=== PATIENT | female | born 1975 | race African-American/Black ===

== ENCOUNTER 2017-05-25 05:26 | Emergency (ER) | payer OTHER ==
[~2017-05-25] VITALS: Ht 167.6 cm; Wt 76.2 kg
[~2017-05-25 05:26] MED LIST: BENTYL10 MG ORAL; CALCIUM 500+D1 EACH PO; CYCLOBENZAPRINE10 MG ORAL; FLONASE1 SPRAYS NASAL; IBUPROFEN600 MG ORAL; INDOMETHACIN75 MG ORAL; LORATADINE10 M1 PO; NAPROXEN500 M2 ORAL; NKM; NORCO 5-325 TA1 EACH ORAL; ONDANSETRON ODT4 MG ORAL; TRAMADOL HCL50 MG ORAL; VALIUM5 MG ORAL; ZOFRAN ODT4 MG ORAL
[2017-05-25 05:45] VITALS: BP 100/64
[2017-05-25] MEDS ORDERED: TRAMADOL HCL50 MG ORAL (06:00)
[2017-05-25] MEDS ORDERED: DOXYCYCLINE MO100 MG ORAL (06:00)
--- NOTE | 2017-05-25 06:01 | Emergency Room Report ---
History of Present Illness General Chief Complaint: General Complaint Source: Patient, Medical Record Present Illness HPI This is a 42-year-old female with history of chronic pain. She presents with headache and a rash. Onset for last to 3 days. Achy. Complaint headache throbbing in nature. No focal deficit. Does have a cough. No nausea no vomiting. No fever or chills. The rash is scattered her body. It is itching. Worried about bedbugs. No other complaint. Allergies: Coded Allergies: Green Fernandez (Verified Allergy, Unknown, 09/14/15) IBUPROFEN (Verified Allergy, Unknown, 05/01/16) Jackson Fernandez (Verified Allergy, Unknown, 09/14/15) Pork (Verified Allergy, Unknown, 08/01/16) White Fernandez (Verified Allergy, Unknown, 09/14/15) Dairy (Verified Adverse Reaction, Intermediate, vomit, 02/28/13) Patient History Past Medical History: see triage record, old chart reviewed Past Surgical History: other Pertinent Family History: none Social History: Reports: smoking Last Menstrual Period: 05/18/17 Now: No : 7 Para: 2 Immunizations: other Reviewed Nursing Documentation: PMH: Agreed, PSxH: Agreed Review of Systems Eye: Denies: blurred vision, eye pain ENT: Denies: ear pain, nose congestion, throat swelling Respiratory: Denies: cough, shortness of breath Cardiovascular: Denies: chest pain, palpitations Gastrointestinal: Denies: abdominal pain, diarrhea, nausea, vomiting Musculoskeletal: Denies: back pain, joint pain Skin: Denies: rash Neurological: Reports: headache, Denies: numbness Endocrine: Denies: increased thirst, increased urine Hematologic/Lymphatic: Denies: easy bruising All Other Systems: negative except mentioned in HPI Physical Exam Vital Signs Date Time Temp Pulse Resp B/P Pulse Ox O2 Delivery O2 Flow Rate FiO2 05/25/17 05:36 97.9 74 14 100/64 97 05/25/17 05:45 Room Air vitals normal Sp02 EP Interpretation: reviewed, normal General Appearance: well appearing, no apparent distress, alert Head: normocephalic, atraumatic Eyes: bilateral eye EOMI, bilateral eye PERRL ENT: hearing grossly normal, normal pharynx Neck: full range of motion, supple, no meningismus Respiratory: chest non-tender, lungs clear, normal breath sounds Cardiovascular #1: regular rate, rhythm, no murmur Gastrointestinal: normal bowel sounds, non tender, no mass, no organomegaly, no bruit, non-distended Musculoskeletal: back normal, gait/station normal, normal range of motion Neurologic: alert, oriented x3 Psychiatric: mood/affect normal Skin: warm/dry, rash - Scattered 3-4 mm erythematous nodular Throughout her body. Medical Decision Making Diagnostic Impression: Primary Impression: Headache Qualified Codes: G44.209 - Tension-type headache, unspecified, not intractable Additional Impression: Cellulitis Qualified Codes: L03.90 - Cellulitis, unspecified ER Course Patient with headache. She looks well. No evidence of meningitis, bleed or neoplastic process. We'll discharge home. Her rash may be a viral illness versus cellulitis. We'll go ahead and treat with antibiotics. Last Vital Signs Date Time Temp Pulse Resp B/P Pulse Ox O2 Delivery O2 Flow Rate FiO2 05/25/17 05:45 97.9 74 14 100/64 97 Room Air Status: improved Disposition: HOME, SELF-CARE Condition: Stable Scripts Tramadol Hcl* (ULTRAM*) 50 Mg Tablet 50 MG ORAL Q6H Y for For Pain, #20 TAB 0 Refills Prov: ELIZ VELARDE M.D. 05/25/17 Doxycycline Monohydrate* (DOXYCYCLINE MONOHYDRATE*) 100 Mg Capsule 100 MG ORAL Q12H, #14 CAP 0 Refills Prov: ELIZ VELARDE M.D. 05/25/17 Additional Instructions: Followup with your DrJayne 7 days. Return if symptom worsen. ELIZ VELARDE M.D. May 25, 2017 06:01
[2017-05-25 06:22] VITALS: BP 104/69
== END 2017-05-25 06:22 | disposition home or self-care (01) ==
LOC: EMR 05:50
DX: R51 Headache (principal); L03.818 Cellulitis of other sites; Z88.6 Allergy status to analgesic agent; Z91.018 Allergy to other foods
CPT/HCPCS: 99284

== ENCOUNTER 2017-05-29 01:56 | Emergency (ER) | payer MEDICAID, OTHER ==
[~2017-05-29] VITALS: Ht 167.6 cm; Wt 73.0 kg
[~2017-05-29 01:56] MED LIST changes: +DOXYCYCLINE MO100 MG ORAL
[2017-05-29] MEDS ORDERED: Acetaminophen 500mg (ES) tab PO ONE (02:45)
[2017-05-29] MEDS ORDERED: CYCLOBENZAPRINE10 MG ORAL (02:58)
[2017-05-29] MEDS ORDERED: ACETAMINOPHEN-1 EAC1 ORAL (02:58)
[2017-05-29 03:44] VITALS: BP 132/82
[2017-05-29] MEDS ORDERED: Morphine Sulfate 4mg/ml Inj IM ONE (03:45)
--- NOTE | 2017-05-29 03:58 | Emergency Room Report ---
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 States she felt her shoulder got pulled out. Notes pain to her left shoulder and left side of neck. Pain is a 10 out of 10, sharp, radiating up the neck. States it is painful to lift her shoulder. Denies any other injuries. No other of any relieving factors. Denies any other associated symptoms. Allergies: Coded Allergies: Green Fernandez (Verified Allergy, Unknown, 09/14/15) IBUPROFEN (Verified Allergy, Unknown, 05/01/16) Jackson Fernandez (Verified Allergy, Unknown, 09/14/15) Pork (Verified Allergy, Unknown, 08/01/16) White Fernandez (Verified Allergy, Unknown, 09/14/15) Dairy (Verified Adverse Reaction, Intermediate, vomit, 02/28/13) Patient History Past Medical History: none Past Surgical History: none Pertinent Family History: none Social History: Denies: alcohol use, drug use, smoking Now: No Immunizations: UTD Reviewed Nursing Documentation: PMH: Agreed, PSxH: Agreed Nursing Documentation-PMH Past Medical History: No Stated History Review of Systems All Other Systems: negative except mentioned in HPI Physical Exam Vital Signs Date Time Temp Pulse Resp B/P Pulse Ox O2 Delivery O2 Flow Rate FiO2 05/29/17 02:12 98.2 75 18 132/82 97 Room Air Sp02 EP Interpretation: reviewed, normal General Appearance: no apparent distress, alert, GCS 15, non-toxic Head: normocephalic Eyes: bilateral eye PERRL, bilateral eye normal inspection ENT: normal ENT inspection Neck: full range of motion, supple/symm/no masses, tender lateral Respiratory: normal inspection Cardiovascular #1: normal inspection Gastrointestinal: normal inspection Rectal: deferred Genitourinary: no CVA tenderness Musculoskeletal: back normal, gait/station normal, normal range of motion - full passive ROM, non-tender, tender - L shoulder Neurologic: alert, oriented x3, responsive, motor strength/tone normal, sensory intact, speech normal Psychiatric: judgement/insight normal, memory normal, mood/affect normal, no suicidal/homicidal ideation Skin: normal inspection Lymphatic: normal inspection Procedures Splinting Splinting : Consent: Verbal Pre-Made Type: sling Pre-Proc Neuro Vasc Exam: normal Post-Proc Neuro Vasc Exam: normal Patient Tolerated: Well Complications: None Medical Decision Making Diagnostic Impression: Primary Impression: Neck strain Qualified Codes: S16.1XXA - Strain of muscle, fascia and tendon at neck level , initial encounter Additional Impression: Shoulder strain Qualified Codes: S46.912A - Strain of unspecified muscle, fascia and tendon at shoulder and upper arm level, left arm, initial encounter ER Course Hospital Course 42-year-old F presents to ED complaining of L shoulder pain Differential diagnoses include: Fracture, dislocation, sprain, contusion Clinical course Patient placed on stretcher. After initial history and physical, I ordered pain medications and Xrays of L shoulder Xrays prelim read shows no acute fracture/dislocation. Placed in shoulder sling Patient is requesting [place] for pain which I do not believe is appropriate. Diagnosis - neck strain, shoulder strain Stable and discharged to home with prescription for Tylenol #3, Flexeril. apply heat. weight bear as tolerated. Followup with PMD. Return to ED if symptoms recur or worsen Other X-Ray Diagnostic Results Other X-Ray Diagnostic Results : X-Ray ordered: L shoulder # of Views/Limited Vs Complete: 3 View Indication: Pain EP Interpretation: Yes Interpretation: no dislocation, no soft tissue swelling, no fractures Impression: No acute disease Interpreting ER Provider: Electronically signed by Pato Sidhu MD Last Vital Signs Date Time Temp Pulse Resp B/P Pulse Ox O2 Delivery O2 Flow Rate FiO2 05/29/17 03:47 98.2 05/29/17 03:44 18 132/82 97 Room Air 05/29/17 02:12 75 Status: improved Disposition: HOME, SELF-CARE Condition: Stable Scripts Cyclobenzaprine Hcl* (FLEXERIL*) 10 Mg Tablet 10 MG ORAL TID Y for Muscle Spasm, #20 TAB Prov: PATO SIDHU M.D. 05/29/17 Acetaminophen With Codeine (T#3) (TYLENOL #3 TAB*) Y Tab 1 TAB ORAL Q8H Y for For Pain, #20 TAB Prov: PATO SIDHU M.D. 05/29/17 Patient Instructions: Shoulder Sprain PATO SIDHU M.D. May 29, 2017 03:58
--- NOTE | 2017-05-29 11:30 | Diagnostic Imaging Report ---
Indication: Pain Findings: 3 views of the left shoulder were obtained. Alignment of the left shoulder is normal. No acute fracture is identified. Soft tissues are unremarkable. Impression: Negative left shoulder examination
== END 2017-05-29 03:48 | disposition home or self-care (01) ==
LOC: EMR 02:29
DX: S16.1XXA Strain of muscle, fascia and tendon at neck level, initial encounter (principal); S46.912A Strain of unspecified muscle, fascia and tendon at shoulder and upper arm level, left arm, initial encounter; Z91.018 Allergy to other foods; Z88.6 Allergy status to analgesic agent; Z91.011 Allergy to milk products; X58.XXXA Exposure to other specified factors, initial encounter; Y92.9 Unspecified place or not applicable
CPT/HCPCS: 29240; 73030; 96372; 99284; J2270

== ENCOUNTER 2017-09-16 21:02 | Emergency (ER) | payer MEDICAID, OTHER ==
[~2017-09-16] VITALS: Ht 167.6 cm; Wt 72.6 kg
[~2017-09-16 21:02] MED LIST changes: +ACETAMINOPHEN-1 EAC1 ORAL
[2017-09-16] MEDS ORDERED: NKM (21:15)
[2017-09-16 21:25] VITALS: BP 129/76
[2017-09-16] MEDS ORDERED: Dicyclomine HCl 10mg/5ml oral soln ORAL ONE (21:30)
[2017-09-16] MEDS ORDERED: Lidocaine 2% Visc 15ml soln ORAL ONE (21:30)
[2017-09-16] MEDS ORDERED: Mylanta II UD 30ml ORAL ONE (21:30)
[2017-09-16] MEDS ORDERED: PEPCID40 MG PO (21:41)
--- NOTE | 2017-09-16 21:41 | Emergency Room Report ---
History of Present Illness General Chief Complaint: Abdominal Pain Source: Patient Present Illness HPI 42-year-old female history of H. pylori many years ago presenting with epigastric and mid abdomen burning for 3 days. Patient states that the burning comes and goes. Denies any fever chills nausea vomiting or diarrhea. Patient states that smoking makes the pain better. Denies any heavy Motrin use. Denies ever having an endoscopy. Denies fever chills dysuria or abnormal vaginal bleeding Allergies: Coded Allergies: Green Fernandez (Verified Allergy, Unknown, 09/14/15) IBUPROFEN (Verified Allergy, Unknown, 05/01/16) Jackson Fernandez (Verified Allergy, Unknown, 09/14/15) Pork (Verified Allergy, Unknown, 08/01/16) White Fernandez (Verified Allergy, Unknown, 09/14/15) Dairy (Verified Adverse Reaction, Intermediate, vomit, 02/28/13) Patient History Past Medical History: see triage record Past Surgical History: none Pertinent Family History: none Last Menstrual Period: last week Reviewed Nursing Documentation: PMH: Agreed, PSxH: Agreed Nursing Documentation-PMH Past Medical History: No History, Except For Review of Systems All Other Systems: negative except mentioned in HPI Physical Exam Vital Signs Date Time Temp Pulse Resp B/P (MAP) Pulse Ox O2 Delivery O2 Flow Rate FiO2 09/16/17 21:10 98.2 79 16 129/76 99 Room Air Sp02 EP Interpretation: reviewed, normal General Appearance: normal inspection, well appearing, no apparent distress, alert, GCS 15, non-toxic Head: normocephalic, atraumatic Eyes: bilateral eye normal inspection, bilateral eye PERRL, bilateral eye EOMI ENT: normal ENT inspection, normal pharynx, normal voice, moist mucus membranes Neck: normal inspection, full range of motion, supple Respiratory: normal inspection, lungs clear, normal breath sounds, no respiratory distress, no retraction, no wheezing, speaking full sentences, chest symmetrical Cardiovascular #1: normal inspection, regular rate, rhythm, no edema, normal capillary refill Cardiovascular #2: 2+ radial (R), 2+ radial (L) Gastrointestinal: soft, non-distended, no guarding, other - Mild epigastric tenderness no guarding no rigidity, nontender all other parts of the abdomen, Antonio sign is negative Musculoskeletal: normal inspection, back normal, normal range of motion, non- tender Neurologic: normal inspection, alert, oriented x3, responsive, motor strength/ tone normal, sensory intact, normal gait, speech normal Psychiatric: normal inspection, judgement/insight normal, memory normal Skin: normal inspection, normal color, no rash, warm/dry, well hydrated, normal turgor Medical Decision Making Diagnostic Impression: Primary Impression: Gastritis Additional Impression: Abdominal pain ER Course 42-year-old female with epigastric abdominal pain Differential Diagnosis: Gastritis, gastroenteritis, UTI/pyelo At this time abdomen is soft nontender all quadrants with the exception of epigastric region, not likely to have acute intra-abdominal surgical pathology, will hold CT for now. Plan: Basic labs, ua, ekg Pepcid, maalox, pain control, IVF ER course: Patient has remained stable during ED stay. Pain improved. Repeat abdominal exam is nontender. Tolerating PO Disposition: Patient is to be discharged to home. Prescriptions given are Pepcid Patient is instructed to follow up with their primary care doctor within 5 days. Strict return precautions discussed with patient such as fever, chills, worsening/severe abdominal pain, nausea, vomiting, black or bloody stools, which may indicate severe illness. Patient verbalizes understanding and agrees with plan. Please note that this Emergency Department Report was dictated using [employer]umble[employer] care nursing assistant technology software, occasionally this can lead to erroneous entry secondary to interpretation by the dictation equipment Laboratory Tests Test 09/16/17 11:34 09/16/17 21:23 09/16/17 21:30 Human Chorionic Gonadotropin, Quant 1 mIU/mL (1-6) Urine Color Pale yellow Urine Appearance Clear Urine pH 7 (4.5-8.0) Urine Specific [place] 1.010 (1.005-1.035) Urine Protein Negative (NEGATIVE) Urine Glucose (UA) Negative (NEGATIVE) Urine Ketones Negative (NEGATIVE) Urine Occult Blood Negative (NEGATIVE) Urine Nitrite Negative (NEGATIVE) Urine Bilirubin Negative (NEGATIVE) Urine Urobilinogen Normal MG/DL (0.0-1.0) Urine Leukocyte Esterase Negative (NEGATIVE) Urine RBC 0-2 /HPF (0 - 2) Urine WBC 0-2 /HPF (0 - 2) Urine Squamous Epithelial Cells Few /LPF (NONE/OCC) Urine Bacteria Few /HPF (NONE) Urine HCG, Qualitative Negative White Blood Count 9.6 K/UL (4.8-10.8) Red Blood Count 4.13 M/UL (4.20-5.40) L Hemoglobin 13.2 G/DL (12.0-16.0) Hematocrit 40.3 % (37.0-47.0) Mean Corpuscular Volume 98 FL (80-99) Mean Corpuscular Hemoglobin 31.8 PG (27.0-31.0) H Mean Corpuscular Hemoglobin Concent 32.6 G/DL (32.0-36.0) Red Cell Distribution Width 11.5 % (11.6-14.8) L Platelet Count 276 K/UL (150-450) Mean Platelet Volume 6.0 FL (6.5-10.1) L Neutrophils (%) (Auto) 54.6 % (45.0-75.0) Lymphocytes (%) (Auto) 33.9 % (20.0-45.0) Monocytes (%) (Auto) 9.3 % (1.0-10.0) Eosinophils (%) (Auto) 1.0 % (0.0-3.0) Basophils (%) (Auto) 1.2 % (0.0-2.0) Sodium Level 138 MMOL/L (136-145) Potassium Level 3.9 MMOL/L (3.5-5.1) Chloride Level 103 MMOL/L (98-107) Carbon Dioxide Level 30 MMOL/L (21-32) Anion Gap 5 mmol/L (5-15) Blood Urea Nitrogen 13 mg/dL (7-18) Creatinine 0.9 MG/DL (0.55-1.30) Estimate Glomerular Filtration Rate > 60 mL/min (>60) Glucose Level 103 MG/DL (74-106) Calcium Level 8.9 MG/DL (8.5-10.1) Total Bilirubin 0.3 MG/DL (0.2-1.0) Aspartate Amino Transferase (AST) 14 U/L (15-37) L Alanine Aminotransferase (ALT) 18 U/L (12-78) Alkaline Phosphatase 90 U/L (46-116) Total Protein 6.8 G/DL (6.4-8.2) Albumin 3.8 G/DL (3.4-5.0) Globulin 3.0 g/dL Albumin/Globulin Ratio 1.3 (1.0-2.7) Lipase 133 U/L (73-393) Last Vital Signs Date Time Temp Pulse Resp B/P (MAP) Pulse Ox O2 Delivery O2 Flow Rate FiO2 09/16/17 21:25 98.2 72 16 129/76 99 Room Air Disposition: HOME, SELF-CARE Condition: Improved Scripts Famotidine (PEPCID) 40 Mg Tablet 40 MG PO DAILY for 14 Days, #14 TAB 0 Refills Prov: Estrellita Perez M.D. 09/16/17 Patient Instructions: Abdominal Pain, Adult, Gastritis, Adult Estrellita Perez M.D. Sep 16, 2017 21:41
[2017-09-16 21:47] LABS: APPEARANCE,URINE CLEAR; BILIRUBIN, URINE NEGATIVE (NEGATIVE); COLOR,URINE PALE YELLOW; GLUCOSE, URINE (UA) NEGATIVE (NEGATIVE); KETONES,URINE NEGATIVE (NEGATIVE); LEUKOCYTE ESTERASE ,URINE NEGATIVE (NEGATIVE); NITRITE,URINE NEGATIVE (NEGATIVE); PH,URINE 7 (4.5-8.0); PROTEIN,URINE NEGATIVE (NEGATIVE); UROBILINOGEN,URINE NORMAL MG/DL (0.0-1.0)
[2017-09-16 22:22] LABS: BASOPHILS % (AUTO) 1.2 % (0.0-2.0); HEMATOCRIT 40.3 % (37.0-47.0); HEMOGLOBIN 13.2 G/DL (12.0-16.0); LYMPHOCYTES % (AUTO) 33.9 % (20.0-45.0); MEAN CORPUSCULAR VOLUME 98 FL (80-99); MONOCYTES % (AUTO) 9.3 % (1.0-10.0); NEUTROPHILS % (AUTO) 54.6 % (45.0-75.0); PLATELET COUNT 276 K/UL (150-450); RED BLOOD COUNT 4.13 M/UL (4.20-5.40); RED CELL DISTRIBUTION WIDTH 11.5 % (11.6-14.8); WHITE BLOOD COUNT 9.6 K/UL (4.8-10.8)
[2017-09-16 22:49] LABS: ALANINE AMINOTRANSFERASE 18 U/L (12-78); ALBUMIN 3.8 G/DL (3.4-5.0); ALBUMIN/GLOBULIN RATIO 1.3 (1.0-2.7); ALKALINE PHOSPHATASE 90 U/L (46-116); ANION GAP 5 mmol/L (5-15); ASPARTATE AMINO TRANSFERASE 14 U/L (15-37); BILIRUBIN,TOTAL 0.3 MG/DL (0.2-1.0); BLOOD UREA NITROGEN 13 mg/dL (7-18); CALCIUM 8.9 MG/DL (8.5-10.1); CARBON DIOXIDE 30 MMOL/L (21-32); CHLORIDE 103 MMOL/L (98-107); CREATININE 0.9 MG/DL (0.55-1.30); POTASSIUM 3.9 MMOL/L (3.5-5.1); SODIUM 138 MMOL/L (136-145)
[2017-09-16 23:12] VITALS: BP 134/82
== END 2017-09-17 00:11 | disposition home or self-care (01) ==
LOC: EMR 22:16
DX: K29.70 Gastritis, unspecified, without bleeding (principal); Z88.6 Allergy status to analgesic agent; Z91.011 Allergy to milk products; Z91.018 Allergy to other foods
CPT/HCPCS: 36415; 80053; 81001; 81025; 83690; 84702; 85025; 96361; 96374; 96375; 99284; J2405; S0028

== ENCOUNTER 2017-09-19 20:57 | Emergency (ER) | payer OTHER ==
[~2017-09-19] VITALS: Ht 170.2 cm; Wt 72.6 kg
[~2017-09-19 20:57] MED LIST changes: +PEPCID40 MG PO
[2017-09-19] MEDS ORDERED: Mylanta II UD 30ml ORAL ONE (21:15)
[2017-09-19] MEDS ORDERED: Lidocaine 2% Visc 15ml soln ORAL ONE (21:15)
--- NOTE | 2017-09-19 21:25 | Emergency Room Report ---
History of Present Illness General Chief Complaint: Abdominal Pain Source: Patient Present Illness HPI [id number] returns walk-in for continued epigastric pain Non-radiating, 04/22. No assoc nausea/vomiting/diarrhea/fever/chills Distant history of Hpylori that was treated and "Resolved" per patient Was seen here 3 days ago for same Review of EMR shows normal blood and urine labwork Patient has been taking prescribed famotidine Has not followup with PMD Allergies: Coded Allergies: Green Fernandez (Verified Allergy, Unknown, 09/14/15) IBUPROFEN (Verified Allergy, Unknown, 05/01/16) Jackson Fernandez (Verified Allergy, Unknown, 09/14/15) Pork (Verified Allergy, Unknown, 08/01/16) White Fernandez (Verified Allergy, Unknown, 09/14/15) Dairy (Verified Adverse Reaction, Intermediate, vomit, 02/28/13) Patient History Past Medical History: none Past Surgical History: none Pertinent Family History: none Social History: Denies: smoking, alcohol use, drug use Last Menstrual Period: 12 days ago Now: No Immunizations: UTD Reviewed Nursing Documentation: PMH: Agreed, PSxH: Agreed Review of Systems All Other Systems: negative except mentioned in HPI Physical Exam Vital Signs Date Time Temp Pulse Resp B/P (MAP) Pulse Ox O2 Delivery O2 Flow Rate FiO2 09/19/17 21:01 97.9 81 18 125/74 98 Sp02 EP Interpretation: reviewed, normal General Appearance: normal inspection, well appearing, no apparent distress, alert, GCS 15, non-toxic Head: normocephalic, atraumatic Eyes: bilateral eye PERRL, bilateral eye EOMI ENT: normal ENT inspection, hearing grossly normal, normal voice Neck: normal inspection, full range of motion, supple, no bony tend Respiratory: normal inspection, lungs clear, normal breath sounds, no respiratory distress, no retraction, no wheezing Cardiovascular #1: regular rate, rhythm, no edema Gastrointestinal: normal inspection, normal bowel sounds, non tender, soft, no mass, no guarding, no hernia, other - Minimal epigastric ttp. Non peritoneal Genitourinary: no CVA tenderness Musculoskeletal: normal inspection, back normal, normal range of motion, Adis' s Sign negative Neurologic: normal inspection, alert, responsive, speech normal Psychiatric: normal inspection, judgement/insight normal, mood/affect normal Skin: normal inspection, normal color, no rash Medical Decision Making Diagnostic Impression: Primary Impression: Gastritis Qualified Codes: K29.50 - Unspecified chronic gastritis without bleeding ER Course Continued epigastric pain VSS. Afebrile Gave viscous lido/Maalox in ED with improvement Abdomen remains non-focal Previously done labwork is reassuring Likely just gastritis Rx-ed Viscous lido to take with pepcid Low suspicion for acute bacterial/surgical process requiring additional lab work , imaging, admission and/or surgical evaluation at this time given well appearing, non-focal abd on serial exam, stable vital signs, and tolerating PO. In shared decision making process with patient, understands to return to ER for worsening symptoms and to followup with PMD in reasonable amount of time, 2-3 days. Last Vital Signs Date Time Temp Pulse Resp B/P (MAP) Pulse Ox O2 Delivery O2 Flow Rate FiO2 09/19/17 21:01 97.9 81 18 125/74 98 Status: improved Disposition: HOME, SELF-CARE Condition: Improved Patient Instructions: Gastritis, Adult, [id number] Additional Instructions: - Continue taking pepcid/famotidine each morning - Take Viscous lidocaine up to 2x a day for pain - Call Dr Montalvo for GI referral for endoscopu: [phone] OLIVE PULIDO M.D. Sep 19, 2017 21:25
[2017-09-19 21:40] VITALS: BP 138/79
[2017-09-19 21:41] VITALS: BP 125/74
== END 2017-09-19 21:43 | disposition home or self-care (01) ==
LOC: EMR 21:12
DX: K29.50 Unspecified chronic gastritis without bleeding (principal); Z91.018 Allergy to other foods; Z88.6 Allergy status to analgesic agent; Z91.011 Allergy to milk products
CPT/HCPCS: 99284; J2405

== ENCOUNTER 2017-10-22 10:32 | Emergency (ER) | payer MEDICAID, OTHER ==
[~2017-10-22] VITALS: Ht 167.6 cm; Wt 70.3 kg
--- NOTE | 2017-10-22 11:00 | Emergency Room Report ---
History of Present Illness General Chief Complaint: Abdominal Pain Source: Patient Present Illness HPI Patient just complains of epigastric discomfort Burning and painful 3/10 Patient reports that the pain is not as bad as previous times but wanted to make sure she was okay Patient reports having a burrito last night Denies any vomiting she had some mild nausea Denies any diarrhea or lower abdominal pain denies any flank pain Denies any fevers or chills Allergies: Coded Allergies: Green Fernandez (Verified Allergy, Unknown, 09/14/15) IBUPROFEN (Verified Allergy, Unknown, 05/01/16) Jackson Fernandez (Verified Allergy, Unknown, 09/14/15) Pork (Verified Allergy, Unknown, 08/01/16) White Fernandez (Verified Allergy, Unknown, 09/14/15) Dairy (Verified Adverse Reaction, Intermediate, vomit, 02/28/13) Patient History Past Medical History: see triage record Pertinent Family History: none Last Menstrual Period: Four weeks ago Reviewed Nursing Documentation: PMH: Agreed, PSxH: Agreed Nursing Documentation-PMH Past Medical History: No Stated History Review of Systems All Other Systems: negative except mentioned in HPI Physical Exam Vital Signs Date Time Temp Pulse Resp B/P (MAP) Pulse Ox O2 Delivery O2 Flow Rate FiO2 10/22/17 10:38 98.2 78 16 101/65 99 Room Air Sp02 EP Interpretation: reviewed, normal General Appearance: well appearing, no apparent distress Head: normocephalic, atraumatic Eyes: bilateral eye PERRL, bilateral eye EOMI ENT: hearing grossly normal, normal pharynx, TMs + canals normal, uvula midline Neck: full range of motion, supple, no meningismus, no bony tend Respiratory: lungs clear, normal breath sounds, no rhonchi, no respiratory distress, no retraction, no accessory muscle use Cardiovascular #1: normal peripheral pulses, regular rate, rhythm, no edema, no gallop, no JVD, no murmur Gastrointestinal: normal bowel sounds, non tender, soft, no mass, no organomegaly, non-distended, no guarding, no hernia, no pulsatile mass, no rebound Genitourinary: no CVA tenderness Musculoskeletal: normal inspection Neurologic: oriented x3, responsive, grease maker head III-XII nml as tested, motor strength/ tone normal, sensory intact Psychiatric: mood/affect normal Skin: normal color, no rash, warm/dry, palpation normal Lymphatic: normal inspection, no adenopathy Medical Decision Making Diagnostic Impression: Primary Impression: Abdominal pain ER Course With the patient's history and examination, multiple differentials considered, including but not limited to , ectopic , ovarian torsion, gastritis, cholecystitis, pancreatitis, appendicitis Patient requesting urine At this time abdomen is soft and benign patient has multiple blood work from last month Given the benign abdominal exam I did not feel further blood work or imaging was required Please note that after the patient was notified regarding her negative result patient did leave prior to final disposition with paperwork Labs Test 10/22/17 10:50 Urine HCG, Qualitative Negative Last Vital Signs Date Time Temp Pulse Resp B/P (MAP) Pulse Ox O2 Delivery O2 Flow Rate FiO2 10/22/17 10:38 98.2 78 16 101/65 99 Room Air Status: improved Disposition: HOME, SELF-CARE Condition: Improved Scripts Famotidine (PEPCID) 40 Mg Tablet 40 MG PO DAILY, #7 TAB 0 Refills Prov: ANDRÉS ALCARAZ D.O. 10/22/17 Additional Instructions: Patient is provided with the discharge instructions notified to follow up with primary doctor in the next 2-3 days otherwise return to the er with any worsening symptoms. Please note that this report is being documented using [employer] technology. This can lead to erroneous entry secondary to incorrect interpretation by the dictating instrument. ANDRÉS ALCARAZ D.O. Oct 22, 2017 11:00
[2017-10-22 11:03] VITALS: BP 101/65
[2017-10-22] MEDS: Mylanta II UD 30ml ORAL ONE ×2 (11:07→11:14)
[2017-10-22] MEDS: Dicyclomine HCl 10mg/5ml oral soln ORAL ONE ×2 (11:07→11:13)
[2017-10-22] MEDS: Lidocaine 2% Visc 15ml soln ORAL ONE ×2 (11:07→11:13)
[2017-10-22] MEDS ORDERED: PEPCID40 MG PO (11:38)
[2017-10-22 11:46] VITALS: BP 101/65
== END 2017-10-22 11:47 | disposition home or self-care (01) ==
LOC: EMR 11:26
DX: R10.13 Epigastric pain (principal); Z88.6 Allergy status to analgesic agent; Z91.018 Allergy to other foods
CPT/HCPCS: 81025; 99283

== ENCOUNTER 2018-03-20 05:31 | Emergency (ER) | payer MEDICAID ==
[~2018-03-20] VITALS: Ht 170.2 cm; Wt 74.8 kg
[2018-03-20] MEDS ORDERED: Naproxen 500mg tab ORAL ONE (06:00)
[2018-03-20] MEDS ORDERED: DiphenhydrAMINE 50mg/ml Inj IVP ONE (06:00)
[2018-03-20] MEDS ORDERED: Metoclopramide 10mg/2ml Inj IVP ONE (06:00)
--- NOTE | 2018-03-20 06:00 | Emergency Room Report ---
History of Present Illness General Chief Complaint: Headache Source: Patient Present Illness HPI Patient woke up with headache today. She never gets headaches. She celebrated her birthday last Monday. She was drinking alcohol at that time and very active. She felt fine on Monday and Monday. On the way into work today she didn't feel well with a headache and has some blurred vision. It's on the right side of her head and is throbbing. She denies any vomiting or nausea. She hasn't taken any medication for it. Pain rated 6/10, throbbing, not radiating, R side of head. She denies any fevers, chills. She's concerned about whether she has diabetes. She's been on the borderline when her doctors checked in the past. She denies polyuria polydipsia. No chest pain, cough. Patient is a smoker. She also smokes THC. Denies any rash. Is no dysuria. Her periods are irregular. She's been having bleeding twice a month. She doesn't believe she is at this time. No "thunderclap", oncologic problems, blood thinners, unilateral weakness or tingling. 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 Last Menstrual Period: 03/13/18 Now: No : 8 Para: 2 Reviewed Nursing Documentation: PMH: Agreed; PSxH: Agreed Review of Systems All Other Systems: negative except mentioned in HPI Physical Exam Vital Signs Date Time Temp Pulse Resp B/P (MAP) Pulse Ox O2 Delivery O2 Flow Rate FiO2 03/20/18 05:33 97.5 74 14 117/65 96 Room Air 97.5 Sp02 EP Interpretation: reviewed, normal General Appearance: well appearing, no apparent distress, GCS 15 Head: normocephalic Eyes: bilateral eye normal inspection, bilateral eye PERRL, bilateral eye EOMI ENT: moist mucus membranes Neck: supple Respiratory: lungs clear, normal breath sounds Cardiovascular #1: regular rate, rhythm Cardiovascular #2: 2+ radial (R) Gastrointestinal: normal inspection, normal bowel sounds, non tender, no mass, non-distended Musculoskeletal: back normal, gait/station normal, normal range of motion Neurologic: alert, 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 Differential includes tension, alcohol withdrawal, vasculitis, migraine amongst others. The pattern is against migraine. She's concerned about blood sugar. The patient be evaluated with labs. CT is not indicated based on the history and physical exam. The patient will be treated with Reglan, Benadryl and Naprosyn. Labs unremarkable. Pain resolved with treatment. No medical emergency at this time. Patient stable for outpatient observation and treatment. Laboratory Tests Test 03/20/18 05:57 03/20/18 06:17 Urine Color Yellow Urine Appearance Clear Urine pH 6 (4.5-8.0) Urine Specific [place] 1.010 (1.005-1.035) Urine Protein Negative (NEGATIVE) Urine Glucose (UA) Negative (NEGATIVE) Urine Ketones Negative (NEGATIVE) Urine Occult Blood Negative (NEGATIVE) Urine Nitrite Negative (NEGATIVE) Urine Bilirubin Negative (NEGATIVE) Urine Urobilinogen Normal MG/DL (0.0-1.0) Urine Leukocyte Esterase Negative (NEGATIVE) Urine HCG, Qualitative Negative (NEGATIVE) Urine Opiates Screen Negative (NEGATIVE) Urine Barbiturates Screen Negative (NEGATIVE) Phencyclidine (PCP) Screen Negative (NEGATIVE) Urine Amphetamines Screen Negative (NEGATIVE) Urine Benzodiazepines Screen Negative (NEGATIVE) Urine Cocaine Screen Negative (NEGATIVE) Urine Marijuana (THC) Screen Positive (NEGATIVE) H White Blood Count 7.1 K/UL (4.8-10.8) Red Blood Count 4.41 M/UL (4.20-5.40) Hemoglobin 14.7 G/DL (12.0-16.0) Hematocrit 40.8 % (37.0-47.0) Mean Corpuscular Volume 93 FL (80-99) Mean Corpuscular Hemoglobin 33.4 PG (27.0-31.0) H Mean Corpuscular Hemoglobin Concent 36.0 G/DL (32.0-36.0) Red Cell Distribution Width 10.6 % (11.6-14.8) L Platelet Count 224 K/UL (150-450) Mean Platelet Volume 5.9 FL (6.5-10.1) L Neutrophils (%) (Auto) 41.6 % (45.0-75.0) L Lymphocytes (%) (Auto) 49.0 % (20.0-45.0) H Monocytes (%) (Auto) 6.7 % (1.0-10.0) Eosinophils (%) (Auto) 1.4 % (0.0-3.0) Basophils (%) (Auto) 1.3 % (0.0-2.0) Erythrocyte Sedimentation Rate Pending Prothrombin Time 10.3 SEC (9.30-11.50) Prothrombin Time INR 1.0 (0.9-1.1) PTT 31 SEC (23-33) Sodium Level 139 MMOL/L (136-145) Potassium Level 4.3 MMOL/L (3.5-5.1) Chloride Level 105 MMOL/L (98-107) Carbon Dioxide Level 25 MMOL/L (21-32) Anion Gap 9 mmol/L (5-15) Blood Urea Nitrogen 13 mg/dL (7-18) Creatinine 0.9 MG/DL (0.55-1.30) Estimate Glomerular Filtration Rate > 60 mL/min (>60) Glucose Level 109 MG/DL (74-106) H Calcium Level 8.7 MG/DL (8.5-10.1) Total Bilirubin 0.4 MG/DL (0.2-1.0) Aspartate Amino Transferase (AST) 12 U/L (15-37) L Alanine Aminotransferase (ALT) 16 U/L (12-78) Alkaline Phosphatase 61 U/L (46-116) Total Creatine Kinase 82 U/L (26-308) Total Protein 7.4 G/DL (6.4-8.2) Albumin 4.1 G/DL (3.4-5.0) Globulin 3.3 g/dL Albumin/Globulin Ratio 1.2 (1.0-2.7) Last Vital Signs Date Time Temp Pulse Resp B/P (MAP) Pulse Ox O2 Delivery O2 Flow Rate FiO2 03/20/18 07:14 97.5 71 14 122/72 98 Room Air 207.5 Status: improved Disposition: HOME, SELF-CARE Condition: Improved Scripts Naproxen* (NAPROSYN*) 250 Mg Tablet 250 MG ORAL TID PRN for For Pain, #16 TAB 0 Refills Prov: Leobardo Prince M.D. 03/20/18 Referrals: NON PHYSICIAN (PCP) Leobardo Prince M.D. March 20, 2018 06:00
[2018-03-20 06:23] LABS: COLOR,URINE YELLOW
[2018-03-20] MEDS ORDERED: Naproxen 500mg tab ONE (06:23)
[2018-03-20 06:24] LABS: APPEARANCE,URINE CLEAR; GLUCOSE, URINE (UA) NEGATIVE (NEGATIVE); KETONES,URINE NEGATIVE (NEGATIVE); PH,URINE 6 (4.5-8.0); PROTEIN,URINE NEGATIVE (NEGATIVE)
[2018-03-20 06:25] LABS: BILIRUBIN, URINE NEGATIVE (NEGATIVE); LEUKOCYTE ESTERASE ,URINE NEGATIVE (NEGATIVE); NITRITE,URINE NEGATIVE (NEGATIVE); UROBILINOGEN,URINE NORMAL MG/DL (0.0-1.0)
[2018-03-20 06:31] LABS: BASOPHILS % (AUTO) 1.3 % (0.0-2.0); EOSINOPHILS % (AUTO) 1.4 % (0.0-3.0); HEMATOCRIT 40.8 % (37.0-47.0); HEMOGLOBIN 14.7 G/DL (12.0-16.0); MEAN CORPUSCULAR VOLUME 93 FL (80-99); MONOCYTES % (AUTO) 6.7 % (1.0-10.0); NEUTROPHILS % (AUTO) 41.6 % (45.0-75.0); PLATELET COUNT 224 K/UL (150-450); RED BLOOD COUNT 4.41 M/UL (4.20-5.40); RED CELL DISTRIBUTION WIDTH 10.6 % (11.6-14.8); WHITE BLOOD COUNT 7.1 K/UL (4.8-10.8)
[2018-03-20 06:48] LABS: ANION GAP 9 mmol/L (5-15); BLOOD UREA NITROGEN 13 mg/dL (7-18); CALCIUM 8.7 MG/DL (8.5-10.1); CARBON DIOXIDE 25 MMOL/L (21-32); CHLORIDE 105 MMOL/L (98-107); CREATININE 0.9 MG/DL (0.55-1.30); POTASSIUM 4.3 MMOL/L (3.5-5.1); SODIUM 139 MMOL/L (136-145)
[2018-03-20 06:55] LABS: ALANINE AMINOTRANSFERASE 16 U/L (12-78); ALBUMIN 4.1 G/DL (3.4-5.0); ALBUMIN/GLOBULIN RATIO 1.2 (1.0-2.7); ALKALINE PHOSPHATASE 61 U/L (46-116); ASPARTATE AMINO TRANSFERASE 12 U/L (15-37); BILIRUBIN,TOTAL 0.4 MG/DL (0.2-1.0); CREATINE KINASE 82 U/L (26-308)
[2018-03-20] MEDS ORDERED: NAPROXEN250 MG ORAL (07:08)
[2018-03-20 07:09] VITALS: BP 122/72
[2018-03-20 07:14] VITALS: BP 122/72
== END 2018-03-20 07:15 | disposition home or self-care (01) ==
LOC: EMR 05:46
DX: R51 Headache (principal); Z88.6 Allergy status to analgesic agent; Z91.018 Allergy to other foods
CPT/HCPCS: 36415; 80053; 80307; 81003; 81025; 82550; 82962; 85025; 85610; 85651; 85730; 96374; 96375; 99284; J1200; J2765

== ENCOUNTER 2018-05-27 09:45 | Emergency (ER) | payer MEDICAID ==
[~2018-05-27] VITALS: Ht 170.2 cm; Wt 74.8 kg
[~2018-05-27 09:45] MED LIST changes: +NAPROXEN250 MG ORAL
[2018-05-27 09:58] VITALS: BP 112/75
[2018-05-27 10:28] LABS: APPEARANCE,URINE CLEAR; BILIRUBIN, URINE NEGATIVE (NEGATIVE); COLOR,URINE PALE YELLOW; GLUCOSE, URINE (UA) NEGATIVE (NEGATIVE); KETONES,URINE NEGATIVE (NEGATIVE); LEUKOCYTE ESTERASE ,URINE NEGATIVE (NEGATIVE); NITRITE,URINE NEGATIVE (NEGATIVE); PH,URINE 6 (4.5-8.0); PROTEIN,URINE NEGATIVE (NEGATIVE); UROBILINOGEN,URINE NORMAL MG/DL (0.0-1.0)
[2018-05-27] MEDS ORDERED: CEPHALEXIN500 MG ORAL (10:48)
[2018-05-27] MEDS ORDERED: DIPHENHYDRAMINE25 M1 ORAL (10:48)
[2018-05-27 10:53] VITALS: BP 112/75
--- NOTE | 2018-05-27 11:04 | Emergency Room Report ---
History of Present Illness General Chief Complaint: General Complaint Source: Patient Present Illness HPI 43-year-old female presents ED for evaluation. Patient is complaining of bites to her left arm and left leg that she noticed yesterday. States they're very itchy. Denies pain. Denies fevers or chills. Also complaining of sore throat and cough. Pain is dull, 5 out of 10, nonradiating. Cough is dry. No other aggravating relieving factors. Denies any other associated symptoms Allergies: Coded Allergies: Green Fernadnez (Verified Allergy, Unknown, 09/14/15) IBUPROFEN (Verified Allergy, Unknown, 05/01/16) Jackson Fernandez (Verified Allergy, Unknown, 09/14/15) Pork (Verified Allergy, Unknown, 08/01/16) White Fernandez (Verified Allergy, Unknown, 09/14/15) Dairy (Verified Adverse Reaction, Intermediate, vomit, 02/28/13) Patient History Past Medical History: none Past Surgical History: none Pertinent Family History: none Social History: Denies: smoking, alcohol use, drug use Last Menstrual Period: 05/22/18 Now: No Immunizations: UTD Reviewed Nursing Documentation: PMH: Agreed; PSxH: Agreed Nursing Documentation-PMH Past Medical History: No Stated History Review of Systems All Other Systems: negative except mentioned in HPI Physical Exam Vital Signs Date Time Temp Pulse Resp B/P (MAP) Pulse Ox O2 Delivery O2 Flow Rate FiO2 05/27/18 09:50 98.4 71 16 112/75 96 Room Air 98.4 Sp02 EP Interpretation: reviewed, normal General Appearance: no apparent distress, alert, GCS 15, non-toxic Head: normocephalic, atraumatic Eyes: bilateral eye normal inspection, bilateral eye PERRL ENT: hearing grossly normal, normal pharynx, no angioedema, normal voice Neck: full range of motion, supple/symm/no masses Respiratory: chest non-tender, lungs clear, normal breath sounds, speaking full sentences Cardiovascular #1: regular rate, rhythm, no edema Cardiovascular #2: 2+ carotid (R), 2+ carotid (L), 2+ radial (R), 2+ radial (L) , 2+ dorsalis pedis (R), 2+ dorsalis pedis (L) Gastrointestinal: normal bowel sounds, non tender, soft, non-distended, no guarding, no rebound Rectal: deferred Genitourinary: normal inspection, no CVA tenderness Musculoskeletal: back normal, gait/station normal, normal range of motion, non- tender Neurologic: alert, oriented x3, responsive, motor strength/tone normal, sensory intact, speech normal Psychiatric: judgement/insight normal, memory normal, mood/affect normal, no suicidal/homicidal ideation Reflexes: 3+ bicep (R), 3+ bicep (L), 3+ tricep (R), 3+ tricep (L), 3+ knee (R) , 3+ knee (L) Skin: normal color, no rash, warm/dry, well hydrated, rash - isolated raised papules to L arm and L leg. indurated/erythematous. no discharge, no fluctuance Lymphatic: no adenopathy Medical Decision Making Diagnostic Impression: Primary Impression: Insect bites Qualified Codes: W57.XXXA - Bitten or stung by nonvenomous insect and other nonvenomous arthropods, initial encounter ER Course Hospital Course 43-year-old female presents to ED with rash to arms, legs. c/o sore throat Differential diagnoses include: Cellulitis, dermatitis, insect bite, abscess Clinical course Patient placed on stretcher. After initial history, physical exam reveals a female in no acute distress. On exam there are isolated raised papules on the left arm and left leg. Erythematous and indurated. No fluctuance or discharge. Consistent with insect bite. We will treat with antibiotics Pharynx unremarkable. No lymphadenopathy. Lungs clear. Likely viral. Treatment is symptomatic Patient is also requesting test. Complaining of some intermittent cramping pains. None at this time. UA unremarkable, U negative Diagnosis - insect bites stable and discharged to home with prescription for keflex, benedryl. Instructed to followup with PMD. Instructed return to ED if symptoms recur or worsen Labs Test 05/27/18 10:02 Urine Color Pale yellow Urine Appearance Clear Urine pH 6 (4.5-8.0) Urine Specific [place] 1.015 (1.005-1.035) Urine Protein Negative (NEGATIVE) Urine Glucose (UA) Negative (NEGATIVE) Urine Ketones Negative (NEGATIVE) Urine Occult Blood Negative (NEGATIVE) Urine Nitrite Negative (NEGATIVE) Urine Bilirubin Negative (NEGATIVE) Urine Urobilinogen Normal MG/DL (0.0-1.0) Urine Leukocyte Esterase Negative (NEGATIVE) Urine HCG, Qualitative Negative (NEGATIVE) Last Vital Signs Date Time Temp Pulse Resp B/P (MAP) Pulse Ox O2 Delivery O2 Flow Rate FiO2 05/27/18 10:53 98.4 78 16 112/75 96 Room Air 98.4 Status: improved Disposition: HOME, SELF-CARE Condition: Stable Scripts Diphenhydramine Hcl* (DIPHENHYDRAMINE HCL*) 25 Mg Capsule 25 MG ORAL Q6H PRN for Itching, #30 CAP 0 Refills Prov: Pato Sidhu MD 05/27/18 Cephalexin* (KEFLEX*) 500 Mg Capsule 500 MG ORAL EVERY 6 HOURS for 7 Days, CAP Prov: Pato Sidhu MD 05/27/18 Patient Instructions: Insect Bite, [id number] Pato Sidhu MD May 27, 2018 11:04
[2018-07-03] MEDS ORDERED: BENADRYL25 MG ORAL (21:35)
== END 2018-05-27 10:53 | disposition home or self-care (01) ==
LOC: EMR 10:05
DX: S40.862A Insect bite (nonvenomous) of left upper arm, initial encounter (principal); S80.862A Insect bite (nonvenomous), left lower leg, initial encounter; W57.XXXA Bitten or stung by nonvenomous insect and other nonvenomous arthropods, initial encounter; Y92.9 Unspecified place or not applicable; R07.0 Pain in throat; Z88.6 Allergy status to analgesic agent; Z91.011 Allergy to milk products; Z91.018 Allergy to other foods
CPT/HCPCS: 81003; 81025; 99284

== ENCOUNTER 2018-06-18 21:52 | Emergency (ER) | payer MEDICAID ==
[~2018-06-18] VITALS: Ht 170.2 cm; Wt 74.8 kg
[~2018-06-18 21:52] MED LIST changes: +CEPHALEXIN500 MG ORAL; +DIPHENHYDRAMINE25 M1 ORAL
--- NOTE | 2018-06-18 22:13 | Emergency Room Report ---
History of Present Illness General Chief Complaint: Abdominal Pain Source: Patient Present Illness HPI This is a 43-year-old female with no significant past medical history. She presents with chief complaint of morning sickness and vomiting for last 2 weeks. Only in the morning. Able to eat during the day. Has some weight gain. She was here 2 weeks ago and was negative. She also checked at home around that time was negative. She has not checked again since then. She wanted to make sure she is not . No abdominal pain. No fever chills but no diarrhea. Vomiting is nonbloody nonbilious. Allergies: Coded Allergies: Green Fernandez (Verified Allergy, Unknown, 09/14/15) IBUPROFEN (Verified Allergy, Unknown, 05/01/16) Jackson Fernandez (Verified Allergy, Unknown, 09/14/15) Pork (Verified Allergy, Unknown, 08/01/16) White Fernandez (Verified Allergy, Unknown, 09/14/15) Dairy (Verified Adverse Reaction, Intermediate, vomit, 02/28/13) Patient History Past Medical History: see triage record, old chart reviewed Past Surgical History: other Pertinent Family History: none Social History: Denies: smoking Last Menstrual Period: 06/12/18 Now: No Immunizations: other Reviewed Nursing Documentation: PMH: Agreed; PSxH: Agreed Review of Systems Eye: Denies: eye pain, blurred vision ENT: Denies: ear pain, nose congestion, throat swelling Respiratory: Denies: cough, shortness of breath Cardiovascular: Denies: chest pain, palpitations Gastrointestinal: Reports: nausea, vomiting; Denies: abdominal pain, diarrhea Musculoskeletal: Denies: back pain, joint pain Skin: Denies: rash Neurological: Denies: headache, numbness Endocrine: Denies: increased thirst, increased urine Hematologic/Lymphatic: Denies: easy bruising All Other Systems: negative except mentioned in HPI Physical Exam Vital Signs Date Time Temp Pulse Resp B/P (MAP) Pulse Ox O2 Delivery O2 Flow Rate FiO2 06/18/18 21:57 98.0 78 18 102/68 97 Room Air 98.1 vitals normal Sp02 EP Interpretation: reviewed, normal General Appearance: well appearing, no apparent distress, alert Head: normocephalic, atraumatic Eyes: bilateral eye PERRL, bilateral eye EOMI ENT: hearing grossly normal, normal pharynx Neck: full range of motion, supple, no meningismus Respiratory: chest non-tender, lungs clear, normal breath sounds Cardiovascular #1: regular rate, rhythm, no murmur Gastrointestinal: normal bowel sounds, non tender, no mass, no organomegaly, no bruit, non-distended Musculoskeletal: back normal, gait/station normal, normal range of motion Psychiatric: mood/affect normal Skin: warm/dry Medical Decision Making Diagnostic Impression: Primary Impression: Abdominal pain Qualified Codes: R10.84 - Generalized abdominal pain Additional Impression: Dysfunctional uterine bleeding ER Course She presents with abdominal pain and vomiting. His been daily every morning for last couple weeks. She is not . No evidence of ectopic. This may be reflux issue going on. She said she has to menstrual flow this month. We' ll discharge home. CT/MRI/US Diagnostic Results CT/MRI/US Diagnostic Results : Imaging Test Ordered: CT abdomen and pelvis Impression CT negative per radiologist Last Vital Signs Date Time Temp Pulse Resp B/P (MAP) Pulse Ox O2 Delivery O2 Flow Rate FiO2 06/18/18 21:57 98.0 78 18 102/68 97 Room Air 98.1 Status: improved Disposition: HOME, SELF-CARE Condition: Stable Scripts Omeprazole Magnesium (PRILOSEC OTC) 20 Mg Tablet. 20 MG ORAL DAILY, #30 TAB Prov: ELIZ VELARDE M.D. 06/19/18 Patient Instructions: Abdominal Pain, Adult Additional Instructions: Follow-up with your DrJayne in 3-5 days. Return if symptom worsen. ELIZ VELARDE M.D. Jun 18, 2018 22:13
[2018-06-18 23:28] LABS: APPEARANCE,URINE CLEAR; BILIRUBIN, URINE NEGATIVE (NEGATIVE); COLOR,URINE PALE YELLOW; GLUCOSE, URINE (UA) NEGATIVE (NEGATIVE); KETONES,URINE NEGATIVE (NEGATIVE); LEUKOCYTE ESTERASE ,URINE NEGATIVE (NEGATIVE); NITRITE,URINE NEGATIVE (NEGATIVE); PH,URINE 7 (4.5-8.0); PROTEIN,URINE NEGATIVE (NEGATIVE); UROBILINOGEN,URINE NORMAL (NORMAL)
[2018-06-19] MEDS ORDERED: PRILOSEC OTC20 MG ORAL (00:02)
[2018-06-19 00:06] VITALS: BP 102/68
--- NOTE | 2018-06-19 10:56 | Diagnostic Imaging Report ---
Indication: Abdominal pain Technique: Noncontrast CT of the abdomen and pelvis utilizing automated exposure control. Axial, sagittal and coronal reformats presented. CT dose: Total DLP 757.67 mGycm; CTDI vol 15.23 mGy Comparison: None Findings: Please note that evaluation of the abdominal and pelvic viscera and vascular structures is limited without the use of intravenous and oral contrast. Within these limitations the following observations are made: Minimal dependent atelectatic changes noted in the posterior lower lobes. Heart size within normal limits. No pericardial effusion. There is hypoattenuation of the blood pool relative to the ventricular septum suggesting anemia. Correlate with CBC. Bladder is contracted, limiting its evaluation however it is grossly unremarkable. Noncontrast evaluation of the liver, spleen, adrenal glands and pancreas grossly unremarkable. Kidneys symmetric in size. No definite urinary tract stone or hydronephrosis noted bilaterally. Some calcifications in the pelvis are noted which are thought to be phleboliths. Uterus and adnexal regions poorly evaluated on noncontrast CT but grossly unremarkable for a reproductive age female. Bladder is decompressed, precluding reliable evaluation. There is trace unspecific free fluid in the pelvis which is likely physiologic. There is no free intraperitoneal air. There is no evidence of bowel obstruction or definite inflammatory change in the mesentery. The appendix is normal. Abdominal aorta normal in caliber. No appreciable bulky/conglomerate lymphadenopathy. No acute osseous abnormality is identified. IMPRESSION: Limited exam without intravenous and oral contrast. Within these limitations: * Trace nonspecific free pelvic fluid likely physiologic. * No nephrolithiasis or hydronephrosis. * No its of bowel obstruction or definite evidence of bowel inflammation. Appendix is normal. This corresponds with the statrad preliminary report. The CT scanner at [facility] is accredited by the [employer] and the scans are performed using protocols designed to limit radiation exposure to as low as reasonably achievable to attain images of sufficient resolution adequate for diagnostic evaluation.
[2018-07-03] MEDS ORDERED: BENADRYL25 MG ORAL (21:35)
== END 2018-06-19 00:05 | disposition home or self-care (01) ==
LOC: EMR 22:00
DX: R10.84 Generalized abdominal pain (principal); N93.8 Other specified abnormal uterine and vaginal bleeding; Z88.6 Allergy status to analgesic agent; Z91.011 Allergy to milk products; Z91.018 Allergy to other foods
CPT/HCPCS: 74176; 81003; 81025; 99284

== ENCOUNTER → 2018-07-03 | Emergency (ER) | payer MEDICAID ==
[~2018-07-03] VITALS: Ht 170.2 cm; Wt 77.1 kg
[~2018-07-03] MED LIST changes: +BENADRYL25 MG ORAL; +PRILOSEC OTC20 MG ORAL
[2018-07-03 21:25] VITALS: BP 110/77
--- NOTE | 2018-07-03 21:36 | Emergency Room Report ---
History of Present Illness General Chief Complaint: General Complaint Source: Patient Present Illness HPI Is a 43-year-old female with multiple allergies. She also has allergy to dogs. [facility]. Her new roommate has a dog and she's been breaking out because of it. She was told to get documentation so they can put her into a new room. She denies any symptoms right now. No nausea no vomiting. No fever or chills. Itching when she is supposed to dogs. She's also has shortness of breath with it. Allergies: Coded Allergies: Green Fernandez (Verified Allergy, Unknown, 09/14/15) IBUPROFEN (Verified Allergy, Unknown, 05/01/16) Jackson Fernandez (Verified Allergy, Unknown, 09/14/15) Pork (Verified Allergy, Unknown, 08/01/16) White Fernandez (Verified Allergy, Unknown, 09/14/15) Dairy (Verified Adverse Reaction, Intermediate, vomit, 02/28/13) Patient History Past Medical History: see triage record, old chart reviewed Past Surgical History: none Pertinent Family History: none Social History: Denies: smoking Last Menstrual Period: 1 week ago Now: No Immunizations: other Reviewed Nursing Documentation: PMH: Agreed; PSxH: Agreed Review of Systems Eye: Denies: eye pain, blurred vision ENT: Denies: ear pain, nose congestion, throat swelling Respiratory: Denies: cough, shortness of breath Cardiovascular: Denies: chest pain, palpitations Gastrointestinal: Denies: abdominal pain, diarrhea, nausea, vomiting Musculoskeletal: Denies: back pain, joint pain Skin: Denies: rash Neurological: Denies: headache, numbness Endocrine: Denies: increased thirst, increased urine Hematologic/Lymphatic: Denies: easy bruising All Other Systems: negative except mentioned in HPI Physical Exam Vital Signs Date Time Temp Pulse Resp B/P (MAP) Pulse Ox O2 Delivery O2 Flow Rate FiO2 07/03/18 21:22 98.4 64 18 110/77 97 Room Air 98.4 vitals normal Sp02 EP Interpretation: reviewed, normal General Appearance: well appearing, no apparent distress, alert Head: normocephalic, atraumatic Eyes: bilateral eye PERRL, bilateral eye EOMI ENT: hearing grossly normal, normal pharynx Neck: full range of motion, supple, no meningismus Respiratory: chest non-tender, lungs clear, normal breath sounds Cardiovascular #1: regular rate, rhythm, no murmur Gastrointestinal: normal bowel sounds, non tender, no mass, no organomegaly, no bruit, non-distended Musculoskeletal: back normal, gait/station normal, normal range of motion Psychiatric: mood/affect normal Skin: warm/dry Medical Decision Making Diagnostic Impression: Primary Impression: Allergy to dogs ER Course Patient with reported allergy to dogs. Asymptomatic right now. We will prescribe that a drill. No evidence of respiratory distress right now. We'll discharge home. Last Vital Signs Date Time Temp Pulse Resp B/P (MAP) Pulse Ox O2 Delivery O2 Flow Rate FiO2 07/03/18 21:22 98.4 64 18 110/77 97 Room Air 98.4 Status: unchanged Disposition: HOME, SELF-CARE Condition: Stable Scripts Diphenhydramine Hcl* (BENADRYL*) 25 Mg Capsule 50 MG ORAL Q6H PRN for Itching, #30 CAP Prov: ELIZ VELARDE M.D. 07/03/18 Additional Instructions: Avoid dogs. Follow-up with your doctor in 7 days. Return for any respiratory distress. ELIZ VELARDE M.D. Jul 03, 2018 21:36
== END | disposition home or self-care (01) ==
LOC: EMR 21:00
DX: J30.81 Allergic rhinitis due to animal (cat) (dog) hair and dander (principal); R21 Rash and other nonspecific skin eruption; Z91.018 Allergy to other foods; Z88.8 Allergy status to other drugs, medicaments and biological substances; Z91.011 Allergy to milk products; F17.200 Nicotine dependence, unspecified, uncomplicated
CPT/HCPCS: 99283

== ENCOUNTER 2018-08-01 18:18 | Emergency (ER) | payer MEDICAID, OTHER ==
[~2018-08-01] VITALS: Ht 170.2 cm; Wt 77.1 kg
[2018-08-01 18:34] VITALS: BP 112/78
--- NOTE | 2018-08-01 18:39 | Emergency Room Report ---
History of Present Illness General Chief Complaint: Upper Extremity Injury Source: Patient Present Illness HPI 43-year-old female patient presents ER complaining of right wrist pain times one day. States pain began yesterday while at work. Denies acute injury or accident. States that she works for [employer] and her work includes lots of lifting boxes. Reports she is right-hand dominant. Reports she has not taken any medication for pain relief, states that she is smoking marijuana for symptoms. Reports allergy ibuprofen states that she takes Reno and Tylenol 3 usually for symptoms. Reports that she vomits when taking ibuprofen. Denies fever, chest pain, shortness of breath. Allergies: Coded Allergies: Green Fernandez (Verified Allergy, Unknown, 09/14/15) IBUPROFEN (Verified Allergy, Unknown, 05/01/16) Jackson Fernandez (Verified Allergy, Unknown, 09/14/15) Pork (Verified Allergy, Unknown, 08/01/16) White Fernandez (Verified Allergy, Unknown, 09/14/15) Dairy (Verified Adverse Reaction, Intermediate, vomit, 02/28/13) Patient History Past Medical History: see triage record Reviewed Nursing Documentation: PMH: Agreed; PSxH: Agreed Nursing Documentation-PMH Past Medical History: No History, Except For Review of Systems All Other Systems: negative except mentioned in HPI Physical Exam Vital Signs Date Time Temp Pulse Resp B/P (MAP) Pulse Ox O2 Delivery O2 Flow Rate FiO2 08/01/18 18:22 98.2 73 18 112/78 96 Room Air 98.2 Sp02 EP Interpretation: reviewed, normal General Appearance: well appearing, no apparent distress, alert, GCS 15, non- toxic Head: normocephalic, atraumatic Eyes: bilateral eye normal inspection, bilateral eye PERRL ENT: hearing grossly normal, normal pharynx, no angioedema, normal voice, uvula midline, moist mucus membranes Neck: full range of motion Respiratory: lungs clear, normal breath sounds, no rhonchi, no respiratory distress, no accessory muscle use, no wheezing, speaking full sentences Cardiovascular #1: regular rate, rhythm, no edema Cardiovascular #2: 2+ radial (R), 2+ radial (L) Musculoskeletal: back normal, digits/nails normal, gait/station normal, normal range of motion, other - NVI, positive Phalen, positive Tinel, no snuffbox tenderness, no erythema or edema, no ecchymosis, tender - dorsum of right wrist Neurologic: alert, oriented x3, responsive, motor strength/tone normal, sensory intact Psychiatric: mood/affect normal Skin: no rash Medical Decision Making PA Attestation Dr. Sidhu is my supervising Physician whom patient management has been discussed with. Diagnostic Impression: Primary Impression: Carpal tunnel syndrome on right ER Course Pt. presents to the ED c/o right wrist pain. Ddx considered but are not limited to fracture, sprain, strain, contusion, dislocation. No erythema, no warmth to touch, no fever, nontoxic appearing, low suspicion for septic joint. Vital signs: are WNL, pt. is afebrile Ordered X-ray and pain medication. ER COURSE Provided with pain medication. An X-ray of the right wrist shows no acute fracture per the preliminary reading. likely carpal tunnel causing pain symptoms. patient requesting further pain medication, instructed her to follow-up with PCP to discuss need for stronger pain medication including Reno and/or Tylenol No. 3 that patient requested in ER. Splint was applied to the right wrist and was checked afterwards by me showing good alignment and support with distal neurovascular functioning intact. Patient instructed on RICE method: rest, ice, compression, elevation. Patient instructed on rest, ice and heat. Patient instructed to be WBAT Workmen's Compensation paperwork completed. Contact information for orthopedic urgent care provided, follow-up with urgent care if unable to followup with primary care provider and get referral to crm specialist. Followup with primary care provider. Discuss referral to ortho/pain management/ PT as needed. Discuss further imaging with MRI/CT as needed. DISCHARGE: -Rx provided for Tylenol for pain symptoms. At this time pt. is stable for d/c to home. Patient is resting comfortably, in no acute distress, nontoxic appearing, talking without difficulty. Will provide printed patient care instructions, and any necessary prescriptions. Patient instructed to follow with primary care provider in 3 - 5 days and to request further follow-up as needed. Care plan and follow up instructions have been discussed with the patient prior to discharge. Take medications as directed. Patient questions asked and answered. Patient reports understanding and agreement to treatment plan. ER precautions given, patient instructed to return to ER immediately for any new or worsening of symptoms. - Please note that this Emergency Department Report was dictated using Dragon commercial lines account manager technology software, occasionally this can lead to erroneous entry secondary to interpretation by the dictation equipment. Other X-Ray Diagnostic Results Other X-Ray Diagnostic Results : X-Ray ordered: right wrist # of Views/Limited Vs Complete: 3 View Indication: Pain EP Interpretation: Yes PA Xray: Interpretation reviewed, by supervising MD, and agrees with findings. Interpretation: no dislocation, no soft tissue swelling, no fractures, nonspecific bowel gas Impression: No acute disease PA Scribe Text Sameer Colvin PA-C Last Vital Signs Date Time Temp Pulse Resp B/P (MAP) Pulse Ox O2 Delivery O2 Flow Rate FiO2 08/01/18 18:34 98.2 78 18 112/78 96 Room Air 98.2 Disposition: HOME, SELF-CARE Condition: Stable Scripts Acetaminophen* (TYLENOL EXTRA STRENGTH*) 500 Mg Tablet 500 MG ORAL Q8H PRN for Prn Headache/Temp > 101, #30 TAB 0 Refills Prov: Jj Colvin 08/01/18 Patient Instructions: Carpal Tunnel Syndrome, [id number] Additional Instructions: Patient instructed to follow up with primary care provider and discuss further referral to orthopedics/physical therapy/pain management as needed. If unable to followup with PCP, followup with orthopedic urgent care in 5-7 days , call to schedule appointment. Patient instructed on RICE method: rest, ice, compression, elevation. Patient instructed to WBAT. Take medications as directed. Patient questions asked and answered. ER precautions given, patient instructed to return to ER immediately for any new or worsening of symptoms. [facility] [address] [facility], [id number] [email or web address] Jj Colvin Aug 01, 2018 18:39
[2018-08-01] MEDS ORDERED: Acetaminophen 500mg (ES) tab ORAL ONE (18:45)
[2018-08-01] MEDS ORDERED: TYLENOL EXTRA500 MG ORAL (19:02)
[2018-08-01 19:30] VITALS: BP 112/78
--- NOTE | 2018-08-02 09:45 | Diagnostic Imaging Report ---
Clinical Indication:Wrist pain Technique: 3 views of the right wrist Comparison: None Findings: No acute fractures. No dislocations. The joint spaces are preserved. Impression: Negative
== END 2018-08-01 19:33 | disposition home or self-care (01) ==
LOC: EMR 19:20
DX: G56.01 Carpal tunnel syndrome, right upper limb (principal); M25.531 Pain in right wrist; Z79.891 Long term (current) use of opiate analgesic; Z88.6 Allergy status to analgesic agent
CPT/HCPCS: 29125; 99283

== ENCOUNTER 2018-11-24 01:27 | Emergency (ER) | payer MEDICAID, OTHER ==
[~2018-11-24] VITALS: Ht 170.2 cm; Wt 79.4 kg
[~2018-11-24 01:27] MED LIST changes: +TYLENOL EXTRA500 MG ORAL
--- NOTE | 2018-11-24 01:50 | NUR ---
ED Nurse Note: Pt arrived ED from home, c/o right arm pain on and off for one month. Pt is A/O X4. Vital signs stable at this time. waitng for orders.
[2018-11-24 01:55] VITALS: BP 114/65
[2018-11-24] MEDS ORDERED: TRAMADOL HCL50 MG ORAL (02:11)
--- NOTE | 2018-11-24 02:11 | Emergency Room Report ---
History of Present Illness General Chief Complaint: Pain Source: Patient Present Illness HPI Is a 43-year-old female who is right-hand dominant. She presents with chief complaint of right wrist pain. Onset the last to 3 days. I seen her before for the same thing. She said it got better but now pain came on again for the last few days. Pain radiates to her elbow. Worse with movement. She is right- hand dominant. Pain is 8 out of 10. No trauma. No fever. No swelling. Allergies: Coded Allergies: Green Fernandez (Verified Allergy, Unknown, 09/14/15) IBUPROFEN (Verified Allergy, Unknown, 05/01/16) Jackson Fernandez (Verified Allergy, Unknown, 09/14/15) Pork (Verified Allergy, Unknown, 08/01/16) White Feranndez (Verified Allergy, Unknown, 09/14/15) Dairy (Verified Adverse Reaction, Intermediate, vomit, 02/28/13) Patient History Past Medical History: none, see triage record, old chart reviewed Past Surgical History: other Pertinent Family History: none Social History: Denies: smoking Last Menstrual Period: 11/22/18 Immunizations: other Reviewed Nursing Documentation: PMH: Agreed; PSxH: Agreed Nursing Documentation-PMH Past Medical History: No Stated History Review of Systems Eye: Denies: eye pain, blurred vision ENT: Denies: ear pain, nose congestion, throat swelling Respiratory: Denies: cough, shortness of breath Cardiovascular: Denies: chest pain, palpitations Gastrointestinal: Denies: abdominal pain, diarrhea, nausea, vomiting Musculoskeletal: Reports: joint pain; Denies: back pain Skin: Denies: rash Neurological: Denies: headache, numbness Endocrine: Denies: increased thirst, increased urine Hematologic/Lymphatic: Denies: easy bruising All Other Systems: negative except mentioned in HPI Physical Exam Vital Signs Date Time Temp Pulse Resp B/P (MAP) Pulse Ox O2 Delivery O2 Flow Rate FiO2 11/24/18 01:37 98.4 84 19 113/66 96 Room Air vitals normal Sp02 EP Interpretation: reviewed, normal General Appearance: well appearing, no apparent distress, alert Head: normocephalic, atraumatic Eyes: bilateral eye PERRL, bilateral eye EOMI ENT: hearing grossly normal, normal pharynx Neck: full range of motion, supple, no meningismus Respiratory: chest non-tender, lungs clear, normal breath sounds Cardiovascular #1: regular rate, rhythm, no murmur Gastrointestinal: normal bowel sounds, non tender, no mass, no organomegaly, no bruit, non-distended Musculoskeletal: back normal, gait/station normal, normal range of motion, tender - over right wrist diffusely Psychiatric: mood/affect normal Skin: warm/dry Procedures Splinting Splinting : Consent: Verbal Location: Right wrist Pre-Made Type: velcro Splint: volar Pre-Proc Neuro Vasc Exam: normal Post-Proc Neuro Vasc Exam: normal Patient Tolerated: Well Complications: None Medical Decision Making Diagnostic Impression: Primary Impression: Wrist sprain Qualified Codes: S63.501A - Unspecified sprain of right wrist, initial encounter ER Course Patient with right wrist pain. No obvious carpal tunnel syndrome. Could be just a tendinitis versus muscular strain. No fracture. No dislocation. No septic joint. We'll discharge home. Last Vital Signs Date Time Temp Pulse Resp B/P (MAP) Pulse Ox O2 Delivery O2 Flow Rate FiO2 11/24/18 01:37 98.4 84 19 113/66 96 Room Air Status: improved Disposition: HOME, SELF-CARE Condition: Stable Scripts Tramadol Hcl* (ULTRAM*) 50 Mg Tablet 50 MG ORAL Q6H PRN for For Pain, #20 TAB 0 Refills Prov: Gorver Torres MD 11/24/18 Additional Instructions: Follow-up with your doctor in 7 days. Return if worse. Grover Torres MD Nov 24, 2018 02:11
[2018-11-24] MEDS ORDERED: Norco 5mg/325mg tab ORAL ONE (02:15)
[2018-11-24 02:26] VITALS: BP 115/63
--- NOTE | 2018-11-24 02:26 | NUR ---
ED Nurse Note: Pt has seen by Dr. Torres, all orders carried out. Pt is ready for discharge, D/c instruction and prescription given to Pt and verbalized understanding. ID band removed. Pt d/c from ED with steady gait and all her belongings.
== END 2018-11-24 02:26 | disposition home or self-care (01) ==
LOC: EMR 02:11
DX: S63.501A Unspecified sprain of right wrist, initial encounter (principal); X58.XXXA Exposure to other specified factors, initial encounter; Y92.9 Unspecified place or not applicable; Z88.6 Allergy status to analgesic agent
CPT/HCPCS: 99283

== ENCOUNTER 2019-03-05 20:52 | Emergency (ER) | payer MEDICAID ==
[~2019-03-05] VITALS: Ht 167.6 cm; Wt 74.8 kg
--- NOTE | 2019-03-05 21:00 | NUR ---
ED Nurse Note: Patient walk in c/o N/V/D, lower back pain since this morning. AO4. NAD. VSS. FAMILY AT BEDSIDE
[2019-03-05] MEDS ORDERED: NKM (21:03)
--- NOTE | 2019-03-05 21:15 | NUR ---
ED Nurse Note: IV ACCESS ESTABLISHED. BLOOD COLLECTED; SENT DOWN TO LAB.
--- NOTE | 2019-03-05 21:18 | Emergency Room Report ---
History of Present Illness General Chief Complaint: Nausea, Vomiting, and Diarrhea Source: Patient Present Illness HPI Is a 43-year-old female with no past medical issue presents with chief complaint abdominal pain with nausea vomiting and diarrhea. Onset 6 AM today. Last night she went to a restaurant and had shrimp steak. When she get home she said she didn't feel very well. Woke up at 6 AM with a lot of cramping and vomiting and diarrhea. Thing seemed to slow down but now a lot of cramping and spasm in her legs and hip area. Pain is 8 out of 10. Nothing made it better. Eating drinking made it worse. Denies any other complaint. Vomiting is nonbloody nonbilious. Allergies: Coded Allergies: Green Fernandez (Verified Allergy, Unknown, 09/14/15) IBUPROFEN (Verified Allergy, Unknown, 05/01/16) Jackson Fernandez (Verified Allergy, Unknown, 09/14/15) Pork (Verified Allergy, Unknown, 08/01/16) White Fernandez (Verified Allergy, Unknown, 09/14/15) Dairy (Verified Adverse Reaction, Intermediate, vomit, 02/28/13) Patient History Past Medical History: see triage record, old chart reviewed Past Surgical History: other Pertinent Family History: none Social History: Denies: smoking Last Menstrual Period: 02/26/2019 Now: No Immunizations: other Reviewed Nursing Documentation: PMH: Agreed; PSxH: Agreed Nursing Documentation-PMH Past Medical History: No History, Except For Review of Systems Eye: Denies: eye pain, blurred vision ENT: Denies: ear pain, nose congestion, throat swelling Respiratory: Denies: cough, shortness of breath Cardiovascular: Denies: chest pain, palpitations Gastrointestinal: Reports: abdominal pain, diarrhea, nausea, vomiting Musculoskeletal: Denies: back pain, joint pain Skin: Denies: rash Neurological: Denies: headache, numbness Endocrine: Denies: increased thirst, increased urine Hematologic/Lymphatic: Denies: easy bruising All Other Systems: negative except mentioned in HPI Physical Exam Vital Signs Date Time Temp Pulse Resp B/P (MAP) Pulse Ox O2 Delivery O2 Flow Rate FiO2 03/05/19 20:59 98.8 96 20 112/75 97 Room Air vitals normal Sp02 EP Interpretation: reviewed, normal General Appearance: well appearing, no apparent distress, alert Head: normocephalic, atraumatic Eyes: bilateral eye PERRL, bilateral eye EOMI ENT: hearing grossly normal, normal pharynx Neck: full range of motion, supple, no meningismus Respiratory: chest non-tender, lungs clear, normal breath sounds Cardiovascular #1: regular rate, rhythm, no murmur Gastrointestinal: non tender, no mass, no organomegaly, no bruit, non-distended , abnormal bowel sounds - hyperactive Musculoskeletal: back normal, gait/station normal, normal range of motion Psychiatric: mood/affect normal Skin: warm/dry Medical Decision Making Diagnostic Impression: Primary Impression: Nausea, vomiting, and diarrhea Additional Impression: Abdominal pain Qualified Codes: R10.84 - Generalized abdominal pain ER Course She presents with abdominal pain with nausea vomiting diarrhea. Labs unremarkable. Urine negative. She is not . She is feeling better now. We'll discharge home. Last Vital Signs Date Time Temp Pulse Resp B/P (MAP) Pulse Ox O2 Delivery O2 Flow Rate FiO2 03/05/19 20:59 98.8 96 20 112/75 97 Room Air Status: improved Disposition: HOME, SELF-CARE Condition: Stable Scripts Ondansetron (Zofran) 4 Mg Tablet 4 MG ORAL Q6H PRN for Nausea & Vomiting, #10 TAB 0 Refills Prov: Grover Torres MD 03/05/19 Additional Instructions: increase fluids. Follow-up with your doctor in 7 days. Return if worse. Grover Torres MD Mar 05, 2019 21:18
[2019-03-05] MEDS ORDERED: Morphine Sulfate 4mg/ml Inj (IV USE ONLY) IVP ONE (21:30)
[2019-03-05 21:38] VITALS: BP 112/75
[2019-03-05 21:41] LABS: HEMATOCRIT 39.7 % (37.0-47.0); HEMOGLOBIN 13.6 G/DL (12.0-16.0); MEAN CORPUSCULAR VOLUME 90 FL (80-99); PLATELET COUNT 253 K/UL (150-450); RED BLOOD COUNT 4.39 M/UL (4.20-5.40); RED CELL DISTRIBUTION WIDTH 10.7 % (11.6-14.8); WHITE BLOOD COUNT 8.5 K/UL (4.8-10.8)
[2019-03-05 21:42] LABS: BASOPHILS % (AUTO) 0.4 % (0.0-2.0); MONOCYTES % (AUTO) 3.7 % (1.0-10.0)
[2019-03-05 22:01] LABS: ANION GAP 9 mmol/L (5-15); BLOOD UREA NITROGEN 15 mg/dL (7-18); CALCIUM 8.7 MG/DL (8.5-10.1); CARBON DIOXIDE 24 MMOL/L (21-32); CHLORIDE 107 MMOL/L (98-107); CREATININE 0.8 MG/DL (0.55-1.30); POTASSIUM 4.2 MMOL/L (3.5-5.1); SODIUM 140 MMOL/L (136-145)
[2019-03-05 22:04] LABS: ALANINE AMINOTRANSFERASE 38 U/L (12-78); ALBUMIN 2.3 G/DL (3.4-5.0); ALBUMIN/GLOBULIN RATIO 0.5 (1.0-2.7); ALKALINE PHOSPHATASE 157 U/L (46-116); ASPARTATE AMINO TRANSFERASE 40 U/L (15-37); BILIRUBIN,TOTAL 0.3 MG/DL (0.2-1.0)
--- NOTE | 2019-03-05 22:06 | NUR ---
ED Nurse Note: URINE COLLECTED; SENT DOWN TO LAB.
[2019-03-05 22:19] LABS: BILIRUBIN, URINE NEGATIVE (NEGATIVE); COLOR,URINE PALE YELLOW; GLUCOSE, URINE (UA) NEGATIVE (NEGATIVE); KETONES,URINE NEGATIVE (NEGATIVE); LEUKOCYTE ESTERASE ,URINE NEGATIVE (NEGATIVE); NITRITE,URINE NEGATIVE (NEGATIVE); PH,URINE 6 (4.5-8.0); PROTEIN,URINE NEGATIVE (NEGATIVE); UROBILINOGEN,URINE NORMAL MG/DL (0.0-1.0)
[2019-03-05 22:24] LABS: APPEARANCE,URINE CLEAR
[2019-03-05] MEDS ORDERED: ZOFRAN4 MG ORAL (22:27)
[2019-03-05 22:30] VITALS: BP 112/75
--- NOTE | 2019-03-05 22:30 | NUR ---
ER DISCHARGE NOTE: Patient is cleared to be discharged per ERMD, pt is aox4, on room air, with stable vital signs. ACCOMPANIED BY FAMILY MEMEBER. pt was given dc and prescription instructions, pt was able to verbalize understanding, pt id band and iv site removed without complications. pt is able to ambulate with steady gait. pt took all belongings.
[2019-05-27] MEDS ORDERED: METHOCARBAMOL750 MG ORAL ×2 (18:24)
[2019-06-25] MEDS ORDERED: IBUPROFEN600 MG ORAL ×2 (09:51)
== END 2019-03-05 22:30 | disposition home or self-care (01) ==
LOC: EMR 21:30
DX: R11.2 Nausea with vomiting, unspecified (principal); R19.7 Diarrhea, unspecified; R10.84 Generalized abdominal pain; Z88.6 Allergy status to analgesic agent; Z91.011 Allergy to milk products; Z91.018 Allergy to other foods
CPT/HCPCS: 36415; 80053; 81003; 81025; 83690; 85025; 96361; 96374; 96375; 99284; J2270; J2405

== ENCOUNTER 2019-05-27 16:58 | Emergency (ER) | payer MEDICAID, OTHER ==
[~2019-05-27] VITALS: Ht 170.2 cm; Wt 74.8 kg
[~2019-05-27 16:58] MED LIST changes: +ZOFRAN4 MG ORAL
[2019-05-27 17:05] VITALS: BP 104/70
--- NOTE | 2019-05-27 17:10 | NUR ---
ED Nurse Note: Patient walked into ED s/p tripped and fell, patient c/o left arm pain and MANNING. patient reports hitting her head but denies any LOC, N/V. patient is alert awake x4 ambulatory breathing unlabored and even.
[2019-05-27] MEDS ORDERED: Acetaminophen 500mg (ES) tab ORAL ONE (17:30)
--- NOTE | 2019-05-27 18:19 | Emergency Room Report ---
History of Present Illness General Chief Complaint: Multiple Trauma/Fall Source: Patient (Magdalena Mariee) Present Illness HPI 44-year-old female presents to the emergency department complaining of 8 out of 10 severity pain to the left hand status post mechanical trip and fall earlier this afternoon while walking to her vehicle. Patient states she fell on an outstretched hand and also bumped her head in the process. Patient denies loss of consciousness, midline neck or back pain, nausea, vomiting, dizziness, visual changes. She reports some tenderness to the right side of her neck and states that the musculature feels sore. Previous injury to the extremities she states that she is right-hand dominant. (Magdalena Mariee) Allergies: Coded Allergies: Green Fernandez (Verified Allergy, Unknown, 09/14/15) IBUPROFEN (Verified Allergy, Unknown, 05/01/16) Jackson Fernandez (Verified Allergy, Unknown, 09/14/15) Pork (Verified Allergy, Unknown, 08/01/16) White Fernandez (Verified Allergy, Unknown, 09/14/15) Dairy (Verified Adverse Reaction, Intermediate, vomit, 02/28/13) Patient History Past Medical History: see triage record Past Surgical History: none Pertinent Family History: none Last Menstrual Period: 05/13/19 Now: No Reviewed Nursing Documentation: PMH: Agreed; PSxH: Agreed (Magdalena Mariee) Nursing Documentation-PMH Past Medical History: No Stated History (Magdalena Mariee) Review of Systems All Other Systems: negative except mentioned in HPI (Magdalena Mariee) Physical Exam Vital Signs Date Time Temp Pulse Resp B/P (MAP) Pulse Ox O2 Delivery O2 Flow Rate FiO2 05/27/19 17:05 98.6 85 20 104/70 (81) 96 Room Air Sp02 EP Interpretation: reviewed, normal General Appearance: no apparent distress, alert, GCS 15, non-toxic Head: normocephalic, atraumatic - mild ttp to the right scalp/forehead, no bruising, no swelling or open wounds Eyes: bilateral eye normal inspection, bilateral eye PERRL ENT: hearing grossly normal, normal voice Neck: full range of motion, no meningismus, no bony tend, tender lateral - right lateral ttp, no midline ttp. no step-off Respiratory: lungs clear, normal breath sounds, speaking full sentences Cardiovascular #1: regular rate, rhythm, normal capillary refill Musculoskeletal: back normal, gait/station normal, normal range of motion, swelling - left hand, tender - dorsum of the left hand at the distal 4th and 3rd metacarpals Neurologic: alert, oriented x3, responsive, motor strength/tone normal, sensory intact, normal gait, speech normal, grossly normal Psychiatric: judgement/insight normal Skin: Ecchymosis/Bruising - dorsum of the left hand. (Magdalena Mariee) Medical Decision Making PA Attestation Dr. Prince Is my supervising Physician whom patient management has been discussed with. (Magdalena Mariee) Diagnostic Impression: Primary Impression: Hand contusion Qualified Codes: S60.222A - Contusion of left hand, initial encounter Additional Impression: Cervical strain Qualified Codes: S16.1XXA - Strain of muscle, fascia and tendon at neck level , initial encounter ER Course 44-year-old female presents to the emergency department complaining of 8 out of 10 severity pain to the left hand status post mechanical trip and fall earlier this afternoon while walking to her vehicle. Patient states she fell on an outstretched hand and also bumped her head in the process. Patient denies loss of consciousness, midline neck or back pain, nausea, vomiting, dizziness, visual changes. She reports some tenderness to the right side of her neck and states that the musculature feels sore. Previous injury to the extremities she states that she is right-hand dominant. 44-year-old female presents to the emergency department complaining of 8 out of 10 severity pain to the left hand status post mechanical trip and fall earlier this afternoon while walking to her vehicle. Patient states she fell on an outstretched hand and also bumped her head in the process. Patient denies loss of consciousness, midline neck or back pain, nausea, vomiting, dizziness, visual changes. She reports some tenderness to the right side of her neck and states that the musculature feels sore. Previous injury to the extremities she states that she is right-hand dominant. Ddx considered but are not limited to Fracture, dislocation, contusion, Sprain/ Strain/Spasm, Vital signs: are WNL, pt. is afebrile H&PE are most consistent with musculoskeletal injury will perform imaging to r/ o fractures/dislocations. ORDERS: - X-ray Left Hand 3 views - negative for fx, Dislocation, or significant soft tissue injury, per preliminary read in ED, and signed by JEEVAN Mariee , my supervising physician has reviewed, and agrees with my interpretation. ED INTERVENTIONS: - 1g Tylenol PO - Hand SPlint DISCHARGE: At this time pt. is stable for d/c to home. Will provide printed patient care instructions, and any necessary prescriptions. Care plan and follow up instructions have been discussed with the patient prior to discharge. (Magdalena Mariee) ER Course On 05/28/2019, I received a phone call from Dr. Santacruz from radiology, he reported that the patient had 1/5 middle phalanx small anterior corner fracture , minimal to no displacement, patient went home with a hand splint, I called the patient back at this time, 1:45 PM, and told her that she had a fracture of the finger, she requested that she come back to have that splinted appropriately , I told her we will put a finger protector splint on it, and would provide any documentation stating that she had a fracture of her finger. (DAYO LANZA M.D) Other X-Ray Diagnostic Results Other X-Ray Diagnostic Results : X-Ray ordered: Left Hand # of Views/Limited Vs Complete: 3 View Indication: Pain EP Interpretation: Yes PA Xray: Interpretation reviewed, by supervising MD, and agrees with findings. Interpretation: no dislocation, no soft tissue swelling, no fractures Impression: No acute disease Electronically Signed by: Magdalena Mariee PA-C (Magdalena Mariee) Other X-Ray Diagnostic Results : Electronically Signed by: Bebeto Cordoba documentation of Xray reviewed by me and is accurate, Leobardo Prince MD (Leobardo Prince MD) Last Vital Signs Date Time Temp Pulse Resp B/P (MAP) Pulse Ox O2 Delivery O2 Flow Rate FiO2 05/27/19 17:49 85 20 Room Air 05/27/19 17:05 98.6 104/70 96 Status: improved (Magdalena Mariee) Disposition: HOME, SELF-CARE Condition: Stable Scripts Methocarbamol* (METHOCARBAMOL*) 750 Mg Tablet 750 MG ORAL FOUR TIMES A DAY PRN for For Pain, #28 TAB 0 Refills Prov: Magdalena Mariee 05/27/19 Acetaminophen* (TYLENOL EXTRA STRENGTH*) 500 Mg Tablet 500 MG ORAL Q6H, #20 TAB Prov: Magdalena Mariee 05/27/19 Patient Instructions: Contusion, [id number] Additional Instructions: Take medications as directed. Follow up with a Primary Care Provider in 3-5 days, even if your symptoms have resolved. --Please review list of primary care clinics, if you do not already have a primary care provider Return sooner to ED if new symptoms occur, or current symptoms become worse. Do not drink alcohol, drive, or operate heavy machinery while taking Robaxin / Muscle Relaxer as this may cause drowsiness. - Please note that this Emergency Department Report was dictated using Glam .fr Francecheck and transfer beader technology software, occasionally this can lead to erroneous entry secondary to interpretation by the dictation equipment. Magdalena Mariee May 27, 2019 18:19 DAYO LANZA M.D May 28, 2019 13:50 Leobardo Prince MD May 29, 2019 02:22
[2019-05-27] MEDS ORDERED: ACETAMINOPHEN500 MG ORAL (18:24)
[2019-05-27] MEDS ORDERED: METHOCARBAMOL750 MG ORAL (18:24)
[2019-05-27 18:45] VITALS: BP 104/70
--- NOTE | 2019-05-28 12:06 | Diagnostic Imaging Report ---
Indication: Pain, trauma Technique: 3 views left hand Comparison: 05/06/2015 left wrist radiograph Findings: There is an anterior corner fracture of the base of the fifth middle phalanx. This is minimally displaced. No other acute fractures. No dislocations. Impression: Positive for fifth middle phalangeal fracture, as described. Dr. Velásquez in the emergency room notified of the findings at the time of interpretation
[2019-05-28] MEDS ORDERED: ACETAMINOPHEN-1 EAC1 ORAL (15:30)
== END 2019-05-27 18:45 | disposition home or self-care (01) ==
LOC: EMR 18:09
DX: S60.222A Contusion of left hand, initial encounter (principal); S16.1XXA Strain of muscle, fascia and tendon at neck level, initial encounter; Z88.6 Allergy status to analgesic agent; Z91.011 Allergy to milk products; Z91.018 Allergy to other foods; W01.0XXA Fall on same level from slipping, tripping and stumbling without subsequent striking against object, initial encounter; Y92.9 Unspecified place or not applicable
CPT/HCPCS: 29125; 99283

== ENCOUNTER 2019-05-28 15:06 | Emergency (ER) | payer OTHER ==
[~2019-05-28] VITALS: Ht 170.2 cm; Wt 74.8 kg
[~2019-05-28 15:06] MED LIST changes: +ACETAMINOPHEN500 MG ORAL; +METHOCARBAMOL750 MG ORAL
[2019-05-28 15:17] VITALS: BP 99/54
--- NOTE | 2019-05-28 15:17 | NUR ---
ED Nurse Note: Pt. AAOx4. Ambulatory. pt. had x-ray of left hand done yesterday and was called to come today for splint placement
--- NOTE | 2019-05-28 15:28 | Emergency Room Report ---
History of Present Illness General Chief Complaint: Upper Extremity Injury Source: Patient Present Illness HPI 44-year-old female with no significant past medical history here complaining of worsening pain in left fourth and fifth fingers. Patient was here yesterday at [facility] and had x-ray was done and diagnosed with hand contusion. However according to the radiologist report patient has a fracture of left fifth digits. Patient was called earlier by Dr. Peralta and asked to come back in for splinting of the finger. Patient is rating the pain 10 out of 10 is currently taking Tylenol. Patient also complains of pain in the left hand rounder digit and is wearing her wedding ring overhead which I advised to not ordering over and the fingers being painful secondary to the pulling due to the fracture of the adjacent finger. Denies tingling and numbness, or any other new injuries. Denies chest pain, shortness of breath, palpitation other associated symptoms. Patient is asking for a change of diagnosis and a work note at this happened at work yesterday Worker's Compensation provider was already done. Allergies: Coded Allergies: Green Fernandez (Verified Allergy, Unknown, 09/14/15) IBUPROFEN (Verified Allergy, Unknown, 05/01/16) Jackson Fernandez (Verified Allergy, Unknown, 09/14/15) Pork (Verified Allergy, Unknown, 08/01/16) White Fernandez (Verified Allergy, Unknown, 09/14/15) Dairy (Verified Adverse Reaction, Intermediate, vomit, 02/28/13) Patient History Past Medical History: see triage record Past Surgical History: unable to obtain Pertinent Family History: none Now: No Immunizations: UTD Reviewed Nursing Documentation: PMH: Agreed; PSxH: Agreed Nursing Documentation-PMH Past Medical History: No History, Except For Review of Systems All Other Systems: negative except mentioned in HPI Physical Exam Vital Signs Date Time Temp Pulse Resp B/P (MAP) Pulse Ox O2 Delivery O2 Flow Rate FiO2 05/28/19 15:17 98.8 89 17 99/54 (69) 99 Room Air Sp02 EP Interpretation: reviewed, normal General Appearance: normal inspection, well appearing, no apparent distress, alert, GCS 15, non-toxic Head: normocephalic, atraumatic Eyes: bilateral eye normal inspection, bilateral eye PERRL ENT: normal ENT inspection, normal pharynx Neck: normal inspection, supple Respiratory: normal inspection, chest non-tender, no rhonchi, no wheezing Cardiovascular #1: normal inspection, no edema, no murmur, normal capillary refill Cardiovascular #2: 2+ radial (R), 2+ radial (L) Gastrointestinal: normal inspection, soft Genitourinary: no CVA tenderness Musculoskeletal: back normal, tender - Left fifth metacarpal Neurologic: normal inspection, alert, oriented x3, responsive, cigarette examiner III-XII nml as tested Psychiatric: normal inspection, judgement/insight normal, memory normal Skin: normal color Lymphatic: normal inspection, no adenopathy Procedures Splinting Splinting : Consent: Verbal Pre-Made Type: metal Pre-Proc Neuro Vasc Exam: normal Post-Proc Neuro Vasc Exam: normal Patient Tolerated: Well Complications: None Medical Decision Making PA Attestation All my diagnosis and treatment plans were reviewed ad discussed with my supervising physician Dr. Perez Diagnostic Impression: Primary Impression: Finger fracture, left ER Course 44-year-old female with no significant past medical history here complaining of worsening pain in left fourth and fifth fingers. Patient was here yesterday at [facility] and had x-ray was done and diagnosed with hand contusion. However according to the radiologist report patient has a fracture of left fifth digits. Patient was called earlier by Dr. Peralta and asked to come back in for splinting of the finger. Patient is rating the pain 10 out of 10 is currently taking Tylenol. Patient also complains of pain in the left hand rounder digit and is wearing her wedding ring overhead which I advised to not ordering over and the fingers being painful secondary to the pulling due to the fracture of the adjacent finger. Denies tingling and numbness, or any other new injuries. Denies chest pain, shortness of breath, palpitation other associated symptoms. Patient is asking for a change of diagnosis and a work note at this happened at work yesterday Worker's Compensation provider was already done. Ddx considered but are not limited to: Finger fracture, finger sprain, finger contusion Vital signs: are WNL, pt. is afebrile H&PE are most consistent with : Left fifth finger fracture ORDERS: Tylenol 3, ED INTERVENTIONS: Metal splint applied to fifth and fourth finger DISCHARGE: At this time pt. is stable for d/c to home. Will provide printed patient care instructions, and any necessary prescriptions. Care plan and follow up instructions have been discussed with the patient prior to discharge. Patient to follow-up with behavioral specialist take medication as directed keep splint on Last Vital Signs Date Time Temp Pulse Resp B/P (MAP) Pulse Ox O2 Delivery O2 Flow Rate FiO2 05/28/19 15:17 98.8 89 17 99/54 (69) 99 Room Air Disposition: HOME, SELF-CARE Condition: Stable Scripts Acetaminophen With Codeine (T#3) (TYLENOL #3 TAB*) Y Tab 1 TAB ORAL Q8HR PRN for For Pain for 3 Days, #10 TAB Prov: Benny Pepe 05/28/19 Patient Instructions: Finger Fracture, [id number] Additional Instructions: Keep metal splint on until you see behavioral specialist follow-up with your primary care provider there has been another metal splint applied to your fourth digit due to pain and make sure you do not wear your ring over read as it may increase swelling and pulling of the tendons attached to the fracture finger. Avoid strenuous physical activity with affected side Benny Pepe May 28, 2019 15:28
[2019-05-28] MEDS ORDERED: ACETAMINOPHEN-1 EAC1 ORAL (15:30)
--- NOTE | 2019-05-28 15:35 | NUR ---
ED Nurse Note: splint applied on the affected site
[2019-05-28 15:42] VITALS: BP 115/62
--- NOTE | 2019-05-28 15:43 | NUR ---
ER DISCHARGE NOTE: Patient is cleared to be discharged per ERMD, pt is aox4, on room air, with stable vital signs. pt was given dc and prescription instructions, pt was able to verbalize understanding, pt id band removed. pt is able to ambulate with steady gait. pt took all belongings.
== END 2019-05-28 15:43 | disposition home or self-care (01) ==
LOC: EMR 15:27
DX: S62.607A Fracture of unspecified phalanx of left little finger, initial encounter for closed fracture (principal); M25.542 Pain in joints of left hand; Z88.6 Allergy status to analgesic agent; Z91.018 Allergy to other foods; Z91.011 Allergy to milk products; X58.XXXA Exposure to other specified factors, initial encounter; Y92.9 Unspecified place or not applicable
CPT/HCPCS: 29130; 99282

== ENCOUNTER 2019-06-04 12:24 | Emergency (ER) | payer MEDICAID, OTHER ==
[~2019-06-04] VITALS: Ht 170.2 cm; Wt 74.8 kg
[2019-06-04 12:36] VITALS: BP 117/79
--- NOTE | 2019-06-04 12:38 | NUR ---
ED Nurse Note: Patient walked in to ER d/t Lt hand pain. pt has been seen by PA here last week and here to follow up for remaining pain. Patient alert and oriented x4 and ambulatory. skin clean and intact. calm and cooperative.
--- NOTE | 2019-06-04 12:42 | NUR ---
ED Nurse Note: Lt hand is being wrapped at bedside.
--- NOTE | 2019-06-04 12:45 | Emergency Room Report ---
History of Present Illness General Chief Complaint: Upper Extremity Injury Source: Patient Present Illness HPI 44-year-old female with no significant past medical history here complaining of continuous pain at the site of her left center maker hand digit fracture. Patient was seen at [facility] on May 27 and and diagnosed with fracture of the left fifth phalanx. Metal splint was applied. Patient was discharged with pain medication. Patient has an appointment coming up with her primary care physician on June 17. Patient was called by [facility] to come back for follow -up today. Denies tingling and numbness. Has no motor or sensory deficits. Patient is requesting more time off from work and restriction using her left hand. Denies all other injuries. Denies chest pain, shortness of breath, palpitation, abdominal pain, nausea vomiting. Patient reports that she still taking her Tylenol 3. Allergies: Coded Allergies: Green Fernandez (Verified Allergy, Unknown, 09/14/15) IBUPROFEN (Verified Allergy, Unknown, 05/01/16) Jackson Fernandez (Verified Allergy, Unknown, 09/14/15) Pork (Verified Allergy, Unknown, 08/01/16) White Fernandez (Verified Allergy, Unknown, 09/14/15) Dairy (Verified Adverse Reaction, Intermediate, vomit, 02/28/13) Patient History Past Medical History: see triage record Past Surgical History: unable to obtain Pertinent Family History: none Last Menstrual Period: 05/13/2019 Now: No Immunizations: UTD Reviewed Nursing Documentation: PMH: Agreed; PSxH: Agreed Nursing Documentation-PMH Past Medical History: No Stated History Review of Systems All Other Systems: negative except mentioned in HPI Physical Exam Vital Signs Date Time Temp Pulse Resp B/P (MAP) Pulse Ox O2 Delivery O2 Flow Rate FiO2 06/04/19 12:29 99.0 87 20 117/79 (92) 97 Room Air Sp02 EP Interpretation: reviewed, normal General Appearance: normal inspection, well appearing, no apparent distress, alert, GCS 15 Head: normocephalic, atraumatic Eyes: bilateral eye normal inspection, bilateral eye PERRL ENT: normal ENT inspection, hearing grossly normal, normal pharynx, no angioedema Neck: normal inspection, full range of motion, supple Respiratory: normal inspection, chest non-tender, lungs clear, no rhonchi, no respiratory distress, no wheezing Cardiovascular #1: normal inspection, regular rate, rhythm, no edema, no murmur , normal capillary refill Cardiovascular #2: 2+ radial (R), 2+ radial (L) Gastrointestinal: normal inspection, non tender, soft Rectal: deferred Genitourinary: no CVA tenderness Musculoskeletal: back normal, normal range of motion, other - Tenderness over left fifth phalanx Neurologic: normal inspection, alert, oriented x3, responsive, shipboard intelligence analyst III-XII nml as tested, motor strength/tone normal, sensory intact Psychiatric: normal inspection, judgement/insight normal, memory normal Skin: no rash, palpation normal Lymphatic: normal inspection, no adenopathy Medical Decision Making PA Attestation All my diagnosis and treatment plans were reviewed ad discussed with my supervising physician Dr. Stark Diagnostic Impression: Primary Impression: Fracture of unspecified phalanx of unspecified finger, sequela ER Course 44-year-old female with no significant past medical history here complaining of continuous pain at the site of her left center maker hand digit fracture. Patient was seen at [facility] on May 27 and and diagnosed with fracture of the left fifth phalanx. Metal splint was applied. Patient was discharged with pain medication. Patient has an appointment coming up with her primary care physician on June 17. Patient was called by [facility] to come back for follow -up today. Denies tingling and numbness. Has no motor or sensory deficits. Patient is requesting more time off from work and restriction using her left hand. Denies all other injuries. Denies chest pain, shortness of breath, palpitation, abdominal pain, nausea vomiting. Patient reports that she still taking her Tylenol 3. Ddx considered but are not limited to: Fracture of finger constipation, complicated fracture of finger, cellulitis Vital signs: are WNL, pt. is afebrile H&PE are most consistent with : Uncomplicated fracture of finger second encounter ORDERS: Tylenol No. 3 ED INTERVENTIONS: Reapplication of the spine and bandage DISCHARGE: At this time pt. is stable for d/c to home. Will provide printed patient care instructions, and any necessary prescriptions. Care plan and follow up instructions have been discussed with the patient prior to discharge. Splint was ordered, extremity was vascularly and neurovascularly intact after splint was applied. pt advised to follow up with pcp and further imaging may be needed. Advised the patient to follow-up with senior computer specialist after seeing her primary care provider patient to request more time off and restriction provider as an emergency weeks of work restriction. Patient agrees to follow-up with her primary care physician. Advised patient to walk-in to her primary care physician's office prior to her Last Vital Signs Date Time Temp Pulse Resp B/P (MAP) Pulse Ox O2 Delivery O2 Flow Rate FiO2 06/04/19 12:36 99.0 91 20 117/79 97 Room Air Disposition: HOME, SELF-CARE Condition: Stable Scripts Acetaminophen With Codeine (T#3) (TYLENOL #3 TAB*) Y Tab 1 TAB ORAL Q8HR PRN for For Pain for 3 Days, #10 TAB Prov: Benny Pepe 06/04/19 Patient Instructions: Finger Fracture, [id number] Additional Instructions: Follow-up with your primary care provider for referral to senior computer specialist take medication as directed avoid strenuous physical activity at this time he has full sensation and there is no motor or sensory deficit at the site of fracture. Benny Pepe Jun 04, 2019 12:45
[2019-06-04] MEDS ORDERED: ACETAMINOPHEN-1 EAC1 ORAL (12:59)
[2019-06-04 13:05] VITALS: BP 112/75
--- NOTE | 2019-06-04 13:05 | NUR ---
ER DISCHARGE NOTE: Patient is cleared to be discharged per PA, pt is aox4, on room air, with stable vital signs. pt was given dc and prescription instructions, pt was able to verbalize understanding, pt id band removed. pt is able to ambulate with steady gait. pt took all belongings.
== END 2019-06-04 13:05 | disposition home or self-care (01) ==
LOC: EMR 12:57
DX: S62.607 Fracture of unspecified phalanx of left little finger (principal); X58.XXXS Exposure to other specified factors, sequela; Z88.6 Allergy status to analgesic agent; Z91.011 Allergy to milk products; Z91.018 Allergy to other foods
CPT/HCPCS: 29130; 99282

== ENCOUNTER 2019-06-06 12:30 | Emergency (ER) | payer MEDICAID, OTHER ==
[~2019-06-06] VITALS: Ht 170.2 cm; Wt 80.3 kg
--- NOTE | 2019-06-06 13:14 | NUR ---
ED Nurse Note:krystle mccoy pt. no active bleeding from gums.
--- NOTE | 2019-06-06 13:53 | Emergency Room Report ---
History of Present Illness General Chief Complaint: General Complaint Source: Patient Present Illness HPI 44-year-old female with history of tobacco smoke here complaining of blood- tinged sputum that she noticed this morning upon brushing her teeth. Patient denies any bleeding gums. Reports that she was very congested and smoked lots of tobacco and we last night. Denies coughing and hemoptysis. Patient shows me a picture of blood tinged mucus. Is in no distress. Reports that her mom of lung cancer and she is worried. Denies sore throat, nausea vomiting, fever and chills, shortness of breath, wheezing, abdominal pain. Patient would also like to be checked for as she has been sexually active without protection. Denies recent travel, exposure to people with high risk for tuberculosis, weight loss, diaphoresis Allergies: Coded Allergies: Green Fernandez (Verified Allergy, Unknown, 09/14/15) IBUPROFEN (Verified Allergy, Unknown, 05/01/16) Jackson Fernandez (Verified Allergy, Unknown, 09/14/15) Pork (Verified Allergy, Unknown, 08/01/16) White Fernandez (Verified Allergy, Unknown, 09/14/15) Dairy (Verified Adverse Reaction, Intermediate, vomit, 02/28/13) Patient History Past Medical History: see triage record Past Surgical History: unable to obtain Pertinent Family History: unable to obtain Social History: Reports: smoking - Tobacco Last Menstrual Period: 05/13/2019 Now: No Immunizations: UTD Reviewed Nursing Documentation: PMH: Agreed; PSxH: Agreed Nursing Documentation-PMH Past Medical History: No Stated History Review of Systems All Other Systems: negative except mentioned in HPI Physical Exam Vital Signs Date Time Temp Pulse Resp B/P (MAP) Pulse Ox O2 Delivery O2 Flow Rate FiO2 06/06/19 12:41 98.1 88 16 101/67 (78) 94 Room Air Sp02 EP Interpretation: reviewed, normal General Appearance: normal inspection, well appearing, no apparent distress, alert, GCS 15 Head: normocephalic, atraumatic Eyes: bilateral eye normal inspection, bilateral eye PERRL ENT: normal ENT inspection, hearing grossly normal, normal pharynx Neck: normal inspection, full range of motion, supple, thyroid normal Respiratory: normal inspection, chest non-tender, lungs clear, normal breath sounds, no rhonchi, no wheezing Cardiovascular #1: normal inspection, regular rate, rhythm, no edema, no murmur Gastrointestinal: normal inspection, no mass Rectal: deferred Genitourinary: no CVA tenderness Musculoskeletal: normal inspection, back normal, digits/nails normal, gait/ station normal Neurologic: normal inspection, alert, oriented x3, responsive Psychiatric: normal inspection, judgement/insight normal Skin: no rash Lymphatic: normal inspection, no adenopathy Medical Decision Making PA Attestation All my diagnosis and treatment plans were reviewed ad discussed with my supervising physician Dr. Velásquez Diagnostic Impression: Primary Impression: Blood-tinged sputum ER Course 44-year-old female with history of tobacco smoke here complaining of blood- tinged sputum that she noticed this morning upon brushing her teeth. Patient denies any bleeding gums. Reports that she was very congested and smoked lots of tobacco and we last night. Denies coughing and hemoptysis. Patient shows me a picture of blood tinged mucus. Is in no distress. Reports that her mom of lung cancer and she is worried. Denies sore throat, nausea vomiting, fever and chills, shortness of breath, wheezing, abdominal pain. Patient would also like to be checked for as she has been sexually active without protection. Denies recent travel, exposure to people with high risk for tuberculosis, weight loss, diaphoresis Ddx considered but are not limited to: strep pharyngitis, URI, tonsilitis, peritonsillar absacess, influneza, blood-tinged sputum, Vital signs: are WNL, pt. is afebrile H&PE are most consistent with: Blood-tinged sputum secondary to postnasal dripping as it only happened once. ORDERS: Chest x-ray, urine test ED INTERVENTIONS: None required at this time. DISCHARGE: At this time pt. is stable for d/c to home. Will provide printed patient care instructions, and any necessary prescriptions. Care plan and follow up instructions have been discussed with the patient prior to discharge. Follow-up with primary care provider if symptoms continue avoid smoking Chest X-Ray Diagnostic Results Chest X-Ray Diagnostic Results : Chest X-Ray Ordered: Yes # of Views/Limited/Complete: 1 View Indication: Other - blood tinged sputum PA Xray: Interpretation reviewed, by supervising MD, and agrees with findings. Interpretation: no consolidation, no effusion, no pneumothorax Impression: No acute disease Electronically Signed by: Benny Duval PA-C Last Vital Signs Date Time Temp Pulse Resp B/P (MAP) Pulse Ox O2 Delivery O2 Flow Rate FiO2 06/06/19 12:41 98.1 88 16 101/67 (78) 94 Room Air Disposition: HOME, SELF-CARE Condition: Stable Referrals: NON PHYSICIAN (PCP) Patient Instructions: Smoking Cessation, Tips for Success, [id number] Additional Instructions: Avoid smoking your blood-tinged sputum is secondary to congestion and postnasal dripping happen only once upon waking up in the morning. However follow-up with her primary care provider Benny Pepe Jun 06, 2019 13:53
--- NOTE | 2019-06-06 14:04 | NUR ---
ER DISCHARGE NOTE: Patient is cleared to be discharged per ERMD, pt is aox4, on room air, with stable vital signs. pt was given dc instructions, pt was able to verbalize understanding, pt id band removed without complications. pt is able to ambulate with steady gait. pt took all belongings.
[2019-06-06 14:05] VITALS: BP 101/67
[2019-06-06 14:07] VITALS: BP 101/67
--- NOTE | 2019-06-06 14:48 | Diagnostic Imaging Report ---
Indication: Chest Comparison: 11/25/2013 A single view chest radiograph was obtained. Findings: Cardiomediastinal appearance is within normal limits for age. The lungs are clear. Pulmonary vascularity is appropriate. The diaphragmatic contour is smooth and costophrenic angles are sharp. No pleural effusions are identified. The bones are unremarkable. Impression: No acute findings
== END 2019-06-06 14:09 | disposition home or self-care (01) ==
LOC: EMR 13:11
DX: R04.2 Hemoptysis (principal); F17.200 Nicotine dependence, unspecified, uncomplicated; Z88.6 Allergy status to analgesic agent; Z91.018 Allergy to other foods
CPT/HCPCS: 71045; 81025; 99283

== ENCOUNTER 2019-06-25 06:53 | Emergency (ER) | payer MEDICAID ==
[~2019-06-25] VITALS: Ht 170.2 cm; Wt 79.4 kg
[2019-06-25 07:15] VITALS: BP 119/81
--- NOTE | 2019-06-25 07:15 | NUR ---
ED Nurse Note: pt walked in to ED with due to pain on left wrist. swelling noted. per pt, had fx on left 5th digit finger previously and injured same hand 2 days ago. denies numbness or tingling sensation. no limited ROM noted. c/o pain for movement. AAO x4. respirations even and non-labored noted. will wait for the further order.
[2019-06-25] MEDS: Naproxen 500mg tab ORAL ONE ×2 (07:30→07:31)
--- NOTE | 2019-06-25 07:53 | Emergency Room Report ---
History of Present Illness General Chief Complaint: Upper Extremity Injury Source: Patient Present Illness HPI Patient broke her little finger on May 27. 2 days ago she slipped in the shower and hit her left hand also. She has swelling in the wrist and pain also. She rates the pain 8/10 after taking 2 Tylenol with codeine and one Xanax bar. The pain is mainly in the snuffbox area but also radiates from the base of the palm on the ulnar side towards the little finger. She denies any numbness at this time. The pain does not radiate up into her arm. She is right -handed. She denies loss of consciousness and did not hit any other joints. She denies back pain at this time. Allergies: Coded Allergies: Green Fernandez (Verified Allergy, Unknown, 09/14/15) Jackson Fernandez (Verified Allergy, Unknown, 09/14/15) Pork (Verified Allergy, Unknown, 08/01/16) White Fernandez (Verified Allergy, Unknown, 09/14/15) Dairy (Verified Adverse Reaction, Intermediate, vomit, 02/28/13) Patient History Past Medical History: see triage record Social History: Reports: smoking Social History Narrative With significant other Now: No Reviewed Nursing Documentation: PMH: Agreed; PSxH: Agreed Review of Systems Constitutional: Denies: fever Cardiovascular: Denies: chest pain Musculoskeletal: Reports: see HPI Skin: Denies: rash Neurological: Reports: see HPI Hematologic/Lymphatic: Denies: easy bleeding Physical Exam Vital Signs Date Time Temp Pulse Resp B/P (MAP) Pulse Ox O2 Delivery O2 Flow Rate FiO2 06/25/19 07:08 98.1 81 18 119/81 (94) 97 Room Air Sp02 EP Interpretation: reviewed, normal General Appearance: well appearing, no apparent distress, GCS 15 Head: normocephalic, atraumatic Eyes: bilateral eye PERRL, bilateral eye EOMI, bilateral eye Scleral Injection ENT: moist mucus membranes Neck: full range of motion, supple Respiratory: speaking full sentences Cardiovascular #1: regular rate, rhythm Cardiovascular #2: 2+ radial (L) - Good capillary refill Gastrointestinal: normal inspection Genitourinary: no CVA tenderness Musculoskeletal: back normal, gait/station normal, swelling - And tenderness snuffbox without referred pain pressing on the volar surface. Some decreased range of motion due to pain. Little finger with good range of motion without swelling at this time. The volar surface of the base of the palm on the ulnar side is also tender without ecchymoses. Neurologic: distal neuro normal, other - Slight slurred speech Psychiatric: mood/affect normal Skin: normal color, other - No ecchymoses Medical Decision Making Diagnostic Impression: Primary Impression: Contusion of left wrist ER Course Patient post fracture of her little finger presents with wrist pain after fall. Differential includes wrist fracture, navicular fracture, contusion amongst others. Due to the nature of the injury a CT scan of the wrist is indicated. The patient is taken the pain medication and benzodiazepines and will be given a dose of Motrin. (Initially Naprosyn was ordered due to alleged Motrin allergy however the patient states that she does take Motrin without any difficulty.) Several calls for CT results. Called back at 9:35. Evidence of the prior little finger fracture but no scaphoid fracture visible at this time. Splint applied by tech. Position good and neurovasc checked by me and excellent. Discussed the need for possible MRI in 1 week if still significant pain. She was told that she needed to have reevaluation at that time. Also warned the patient of mixing opiates and benzodiazepines. Understands the risk. Patient stable for outpatient observation and treatment. CT/MRI/US Diagnostic Results CT/MRI/US Diagnostic Results : Imaging Test Ordered: Left hand Impression Old fracture little finger, no scaphoid fracture visible Last Vital Signs Date Time Temp Pulse Resp B/P (MAP) Pulse Ox O2 Delivery O2 Flow Rate FiO2 06/25/19 10:05 98.0 78 16 121/78 99 Room Air Status: improved Disposition: HOME, SELF-CARE Condition: Improved Scripts Ibuprofen* (MOTRIN*) 600 Mg Tablet 600 MG ORAL Q6HR, #20 TAB 0 Refills Prov: Leobardo Prince MD 06/25/19 Referrals: NON PHYSICIAN (PCP) Leobardo Prince MD Jun 25, 2019 07:53
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
[2019-06-25] MEDS ORDERED: IBUPROFEN600 MG ORAL (09:51)
[2019-06-25 10:05] VITALS: BP 121/78
--- NOTE | 2019-06-25 10:07 | NUR ---
ER DISCHARGE NOTE: Patient is cleared to be discharged per ERMD, pt is aox4, on room air, with stable vital signs. pt was given dc and prescription instructions, pt was able to verbalize understanding, pt id band removed without complications. pt is able to ambulate with steady gait. pt took all belongings.
== END 2019-06-25 10:07 | disposition home or self-care (01) ==
LOC: EMR 07:32
DX: S60.212A Contusion of left wrist, initial encounter (principal); W18.2XXA Fall in (into) shower or empty bathtub, initial encounter; Y92.9 Unspecified place or not applicable; F17.200 Nicotine dependence, unspecified, uncomplicated; Z91.011 Allergy to milk products; Z91.018 Allergy to other foods
CPT/HCPCS: 99284

== ENCOUNTER 2019-08-12 09:59 | Emergency (ER) | payer SELFPAY ==
[~2019-08-12] VITALS: Ht 170.2 cm; Wt 79.4 kg
[2019-08-12] MEDS ORDERED: NKM (10:07)
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
[2019-08-12 10:23] VITALS: BP 122/62
[2019-08-12] MEDS ORDERED: ROBAXIN-750750 MG PO (10:28)
[2019-08-12] MEDS ORDERED: IBUPROFEN600 MG ORAL (10:28)
[2019-08-12] MEDS ORDERED: LIDODERM700 M1 TOPIC (10:28)
[2019-08-12] MEDS: Ketorolac 30mg Inj IM ONE ×2 (10:34→10:36)
[2019-08-12] MEDS: Methocarbamol 750mg tab ORAL ONE ×2 (10:34→10:36)
--- NOTE | 2019-08-12 10:39 | NUR ---
ED Nurse Note: PT SITTING PEACEFULLY IN BED IN NAD. AOX4. PRESCRIPTIONS AND DISCHARGE PAPERWORK EXPLAINED TO PT. PT VERBALIZES UNDERSTANDING AND ALL QUESTIONS ANSWERED. PRESCRIPTIONS SENT ELECTRONICALLY TO PT'S PHARMACY. DISCHARGE PAPERWORK GIVEN TO PT AND ID WRISTBAND REMOVED. PT WALKED OUT OF ER WITH STEADY GAIT AND ALL BELONGINGS.
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
== END 2019-08-12 10:39 | disposition home or self-care (01) ==
LOC: EMR 10:30
DX: S40.012A Contusion of left shoulder, initial encounter (principal); M62.830 Muscle spasm of back; Z91.011 Allergy to milk products; Z91.018 Allergy to other foods; V43.52XA Car driver injured in collision with other type car in traffic accident, initial encounter; Y92.410 Unspecified street and highway as the place of occurrence of the external cause
CPT/HCPCS: 99282

== ENCOUNTER → 2019-10-02 | Emergency (ER) | payer MEDICAID ==
[~2019-10-02] VITALS: Ht 170.2 cm; Wt 79.8 kg
[~2019-10-02] MED LIST changes: +IBU800 MG PO; +Ketorolac 30mg Inj IM ONE; +LIDODERM700 M1 TOPIC; +Methocarbamol 750mg tab ORAL ONE; +ROBAXIN-750750 MG PO
[2019-10-02 17:17] VITALS: BP 125/79
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
== END | disposition home or self-care (01) ==
LOC: EMR 17:27
DX: S33.5XXA Sprain of ligaments of lumbar spine, initial encounter (principal); V43.92XA Unspecified car occupant injured in collision with other type car in traffic accident, initial encounter; Y92.410 Unspecified street and highway as the place of occurrence of the external cause
CPT/HCPCS: 96372; J1885; Z7502; 99283

== ENCOUNTER → 2019-10-18 | Emergency (ER) | payer MEDICAID ==
[~2019-10-18] VITALS: Ht 170.2 cm; Wt 83.9 kg
[~2019-10-18] MED LIST changes: -Ketorolac 30mg Inj IM ONE; -Methocarbamol 750mg tab ORAL ONE
[2019-10-18 14:11] VITALS: BP 122/68
--- NOTE | 2019-10-18 14:35 | Emergency Room Report ---
History of Present Illness General Chief Complaint: Abdominal Pain Source: Patient Present Illness HPI Patient presents with 2 to 3 days of generalized abdominal discomfort and bloating. Her last period was 40 days ago. She is not sure she is at this time. She denies any fevers or chills. This morning when she was brushing her teeth she vomited material that she ate yesterday at lunch. They were tony greens. She rates the pain 6/10 and the mid abdomen. She denies any dysuria or change in bowel habits. She not taken any medication at this time. 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 Last Menstrual Period: unknown Reviewed Nursing Documentation: PMH: Agreed; PSxH: Agreed Nursing Documentation-PMH Past Medical History: No Stated History Review of Systems All Other Systems: negative except mentioned in HPI Physical Exam Vital Signs Date Time Temp Pulse Resp B/P (MAP) Pulse Ox O2 Delivery O2 Flow Rate FiO2 10/18/19 14:11 99.0 84 16 122/68 (86) 99 Room Air Sp02 EP Interpretation: reviewed, normal General Appearance: well appearing, no apparent distress, GCS 15 Head: normocephalic Eyes: bilateral eye normal inspection, bilateral eye PERRL, bilateral eye EOMI ENT: moist mucus membranes Neck: supple Respiratory: lungs clear, normal breath sounds Cardiovascular #1: regular rate, rhythm Cardiovascular #2: 2+ radial (R) Gastrointestinal: normal inspection, normal bowel sounds, no mass, non- distended, no guarding, no rebound, tenderness - reported tenderness diffusely and periumbilical area Musculoskeletal: back normal, normal range of motion, gait/station normal Neurologic: alert, oriented x3, grossly normal Psychiatric: mood/affect normal Skin: no rash Medical Decision Making Diagnostic Impression: Primary Impression: Abdominal pain Qualified Codes: R10.84 - Generalized abdominal pain ER Course Patient presents with abdominal pain 2 to 3 days with bloating delay of her.. Differential includes gastroenteritis, food poisoning, early amongst others. She is refusing imaging and medication at this time. She will be evaluated with labs and urinalysis. Patient insisted on leaving prior to lab results. Labs unremarkable. Discussed with patient over the phone. Patient stable for outpatient observation and treatment. Laboratory Tests Test 10/18/19 14:14 10/18/19 14:45 Urine Color Pale yellow Urine Appearance Clear Urine pH 6.5 (4.5-8.0) Urine Specific [place] 1.015 (1.005-1.035) Urine Protein Negative (NEGATIVE) Urine Glucose (UA) Negative (NEGATIVE) Urine Ketones Negative (NEGATIVE) Urine Blood Negative (NEGATIVE) Urine Nitrite Negative (NEGATIVE) Urine Bilirubin Negative (NEGATIVE) Urine Urobilinogen Normal MG/DL (0.0-1.0) Urine Leukocyte Esterase Negative (NEGATIVE) Urine HCG, Qualitative Negative (NEGATIVE) White Blood Count 6.8 K/UL (4.8-10.8) Red Blood Count 4.10 M/UL (4.20-5.40) L Hemoglobin 12.8 G/DL (12.0-16.0) Hematocrit 38.2 % (37.0-47.0) Mean Corpuscular Volume 93 FL (80-99) Mean Corpuscular Hemoglobin 31.3 PG (27.0-31.0) H Mean Corpuscular Hemoglobin Concent 33.5 G/DL (32.0-36.0) Red Cell Distribution Width 11.1 % (11.6-14.8) L Platelet Count 263 K/UL (150-450) Mean Platelet Volume 5.8 FL (6.5-10.1) L Neutrophils (%) (Auto) 55.8 % (45.0-75.0) Lymphocytes (%) (Auto) 34.3 % (20.0-45.0) Monocytes (%) (Auto) 8.4 % (1.0-10.0) Eosinophils (%) (Auto) 0.9 % (0.0-3.0) Basophils (%) (Auto) 0.7 % (0.0-2.0) Sodium Level 141 MMOL/L (136-145) Potassium Level 4.1 MMOL/L (3.5-5.1) Chloride Level 104 MMOL/L (98-107) Carbon Dioxide Level 32 MMOL/L (21-32) Anion Gap 5 mmol/L (5-15) Blood Urea Nitrogen 16 mg/dL (7-18) Creatinine 1.0 MG/DL (0.55-1.30) Estimate Glomerular Filtration Rate > 60 mL/min (>60) Glucose Level 112 MG/DL (74-106) H Calcium Level 8.7 MG/DL (8.5-10.1) Total Bilirubin 0.3 MG/DL (0.2-1.0) Aspartate Amino Transferase (AST) 13 U/L (15-37) L Alanine Aminotransferase (ALT) 18 U/L (12-78) Alkaline Phosphatase 71 U/L (46-116) Total Protein 6.8 G/DL (6.4-8.2) Albumin 3.7 G/DL (3.4-5.0) Globulin 3.1 g/dL Albumin/Globulin Ratio 1.2 (1.0-2.7) Lipase 194 U/L (73-393) Last Vital Signs Date Time Temp Pulse Resp B/P (MAP) Pulse Ox O2 Delivery O2 Flow Rate FiO2 10/18/19 14:11 99.0 84 16 122/68 (86) 99 Room Air Status: unchanged Disposition: HOME, SELF-CARE Condition: Stable Leobardo Prince MD Oct 18, 2019 14:35
--- NOTE | 2019-10-18 14:45 | NUR ---
ED Nurse Note: Venipuncture performed to left AC using 22g. Applied clean, dry dressing.
[2019-10-18 15:12] LABS: ANION GAP 5 mmol/L (5-15); BLOOD UREA NITROGEN 16 mg/dL (7-18); CALCIUM 8.7 MG/DL (8.5-10.1); CARBON DIOXIDE 32 MMOL/L (21-32); CHLORIDE 104 MMOL/L (98-107); POTASSIUM 4.1 MMOL/L (3.5-5.1); SODIUM 141 MMOL/L (136-145)
[2019-10-18 15:16] LABS: ALANINE AMINOTRANSFERASE 18 U/L (12-78); ALBUMIN 3.7 G/DL (3.4-5.0); ALBUMIN/GLOBULIN RATIO 1.2 (1.0-2.7); ALKALINE PHOSPHATASE 71 U/L (46-116); ASPARTATE AMINO TRANSFERASE 13 U/L (15-37); BILIRUBIN,TOTAL 0.3 MG/DL (0.2-1.0)
[2019-10-18 15:24] LABS: APPEARANCE,URINE CLEAR; BILIRUBIN, URINE NEGATIVE (NEGATIVE); COLOR,URINE PALE YELLOW; GLUCOSE, URINE (UA) NEGATIVE (NEGATIVE); KETONES,URINE NEGATIVE (NEGATIVE); LEUKOCYTE ESTERASE ,URINE NEGATIVE (NEGATIVE); NITRITE,URINE NEGATIVE (NEGATIVE); PH,URINE 6.5 (4.5-8.0); PROTEIN,URINE NEGATIVE (NEGATIVE); UROBILINOGEN,URINE NORMAL MG/DL (0.0-1.0)
[2019-10-18 15:34] LABS: BASOPHILS % (AUTO) 0.7 % (0.0-2.0); EOSINOPHILS % (AUTO) 0.9 % (0.0-3.0); HEMATOCRIT 38.2 % (37.0-47.0); HEMOGLOBIN 12.8 G/DL (12.0-16.0); LYMPHOCYTES % (AUTO) 34.3 % (20.0-45.0); MEAN CORPUSCULAR VOLUME 93 FL (80-99); MONOCYTES % (AUTO) 8.4 % (1.0-10.0); NEUTROPHILS % (AUTO) 55.8 % (45.0-75.0); PLATELET COUNT 263 K/UL (150-450); RED CELL DISTRIBUTION WIDTH 11.1 % (11.6-14.8); WHITE BLOOD COUNT 6.8 K/UL (4.8-10.8)
== END | disposition home or self-care (01) ==
LOC: EMR 14:30
DX: R10.84 Generalized abdominal pain (principal); Z91.011 Allergy to milk products; Z91.018 Allergy to other foods
CPT/HCPCS: 36415; 80053; 81003; 81025; 83690; 85025; Z7502; 99284

== ENCOUNTER 2019-11-17 21:50 | Emergency (ER) | payer MEDICAID ==
[~2019-11-17] VITALS: Ht 170.2 cm; Wt 85.3 kg
[2019-11-17] MEDS ORDERED: Acetaminophen 500mg (ES) tab ORAL ONE (22:00)
[2019-11-17 22:20] VITALS: BP 108/68
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
--- NOTE | 2019-11-17 22:31 | NUR ---
ED Nurse Note: Patient refused to take Tylenol 1000mg po. Explained risk and benefits, pt verbally understood. notified.
--- NOTE | 2019-11-17 22:45 | NUR ---
ED Nurse Note: Urine order cancelled by ERMSheela.
[2019-11-17] MEDS ORDERED: ROBAXIN-750750 MG PO (22:52)
[2019-11-17] MEDS ORDERED: LIDODERM700 M1 TOPIC (22:52)
[2019-11-17] MEDS ORDERED: TYLENOL325 MG ORAL (22:52)
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
[2019-11-17 22:59] VITALS: BP 108/68
--- NOTE | 2019-11-17 22:59 | NUR ---
ED Nurse Note: Pt cleared by ERMD for discharge. DC instructions/prescription was given and explained to pt and verbalized understanding of teachings. All medical deviecs such as ID band removed. Pt is AAO x4, ambulatory and left with all personal belongings.
== END 2019-11-17 22:59 | disposition home or self-care (01) ==
LOC: EMR 22:59
DX: S40.011A Contusion of right shoulder, initial encounter (principal); V43.52XA Car driver injured in collision with other type car in traffic accident, initial encounter; Y92.9 Unspecified place or not applicable; Z88.6 Allergy status to analgesic agent; Z91.018 Allergy to other foods; Z91.011 Allergy to milk products
CPT/HCPCS: 99282

== ENCOUNTER 2020-01-08 11:27 | Emergency (ER) | payer MEDICAID ==
[~2020-01-08] VITALS: Ht 170.2 cm; Wt 82.6 kg
[~2020-01-08 11:27] MED LIST changes: +TYLENOL325 MG ORAL
[2020-01-08 11:41] VITALS: BP 141/78
--- NOTE | 2020-01-08 11:43 | NUR ---
ED Nurse Note: Patient walked in to ER from home due to Rt lower back pain 06/22 after skating on Monday. pt denied fall incidents or other injuries. pt aao x4 and ambulatory without difficulty. calm and cooperative. skin clean and intact. no cardiac or pulmonary distress noted at this time.
--- NOTE | 2020-01-08 12:55 | Emergency Room Report ---
History of Present Illness General Chief Complaint: Back Pain-No Injury Source: Patient Present Illness HPI 44-year-old female with no significant past medical history here complaining of low back pain after playing skateboard yesterday. Patient denies any fall or injury. Has not taken medication for symptom relief. Requesting 5 days off from work. Denies any pain radiation, tingling numbness, saddle paresthesia, urinary or bowel incontinence. Denies other injuries. Rates the pain 10 out of 10, denies any urinary symptoms. Sitting comfortably with stable vital signs and has full range of motion. Allergies: Coded Allergies: Green Fernandez (Verified Allergy, Unknown, 09/14/15) IBUPROFEN (Verified Allergy, Unknown, 11/17/19) Jackson Fernandez (Verified Allergy, Unknown, 09/14/15) Pork (Verified Allergy, Unknown, 08/01/16) White Fernandez (Verified Allergy, Unknown, 09/14/15) Dairy (Verified Adverse Reaction, Intermediate, vomit, 02/28/13) Patient History Past Medical History: see triage record Past Surgical History: none Pertinent Family History: none Last Menstrual Period: on period Now: No Immunizations: UTD Reviewed Nursing Documentation: PMH: Agreed; PSxH: Agreed Nursing Documentation-PMH Past Medical History: No Stated History Review of Systems All Other Systems: negative except mentioned in HPI Physical Exam Vital Signs Date Time Temp Pulse Resp B/P (MAP) Pulse Ox O2 Delivery O2 Flow Rate FiO2 01/08/20 11:41 98.2 92 16 97/60 (72) 99 Room Air Sp02 EP Interpretation: reviewed, normal General Appearance: no apparent distress, alert, GCS 15, non-toxic Head: normocephalic, atraumatic Eyes: bilateral eye normal inspection, bilateral eye PERRL ENT: hearing grossly normal, normal pharynx, no angioedema, normal voice Neck: full range of motion, supple, no meningismus, supple/symm/no masses Respiratory: chest non-tender, lungs clear, normal breath sounds, no rhonchi, no respiratory distress, no retraction, no wheezing, speaking full sentences Cardiovascular #1: regular rate, rhythm, no edema, no murmur Cardiovascular #2: 2+ dorsalis pedis (R), 2+ dorsalis pedis (L) Gastrointestinal: normal bowel sounds, non tender, soft, non-distended, no guarding, no rebound Rectal: deferred Genitourinary: no CVA tenderness Musculoskeletal: back normal, normal range of motion, no calf tenderness, pelvis stable, gait/station normal, non-tender Neurologic: alert, motor strength/tone normal, oriented x3, sensory intact, responsive, speech normal Psychiatric: judgement/insight normal, memory normal, mood/affect normal, no suicidal/homicidal ideation Skin: no rash Lymphatic: no adenopathy Medical Decision Making PA Attestation All diagnoses and treatment plans were reviewed and discussed with my supervising physician Dr. Jackson Diagnostic Impression: Primary Impression: Lumbar strain ER Course 44-year-old female with no significant past medical history here complaining of low back pain after playing skateboard yesterday. Patient denies any fall or injury. Has not taken medication for symptom relief. Requesting 5 days off from work. Denies any pain radiation, tingling numbness, saddle paresthesia, urinary or bowel incontinence. Denies other injuries. Rates the pain 10 out of 10, denies any urinary symptoms. Sitting comfortably with stable vital signs and has full range of motion. Ddx considered but are not limited to: Lumbar spine sprain, strain, fracture, contusion, neuropathy Vital signs: are WNL, pt. is afebrile H&PE are most consistent with: Lumbar strain ORDERS: No x-ray needed as patient no fall or injure herself, no bony tenderness noted Robaxin, Motrin, lidocaine patch ER intervention: None DISCHARGE: At this time pt. is stable for d/c to home. Will provide printed patient care instructions, and any necessary prescriptions. Care plan and follow up instructions have been discussed with the patient prior to discharge. Patient take medication as directed, avoid strenuous physical activity, follow with primary care provider, if worsening symptoms return to the emergency room Last Vital Signs Date Time Temp Pulse Resp B/P (MAP) Pulse Ox O2 Delivery O2 Flow Rate FiO2 01/08/20 11:41 98.1 97 21 141/78 99 Room Air Disposition: HOME, SELF-CARE Condition: Stable Scripts Lidocaine Patch* (Lidoderm Patch*) 1 Each Adh..patch 1 PATCH TOPIC DAILY, #30 PATCH Patch(es) may remain in place for up to 12 hours in any 24-hour period. Prov: Benny Pepe 01/08/20 Ibuprofen* (MOTRIN*) 600 Mg Tablet 600 MG ORAL THREE TIMES A DAY, #30 TAB 0 Refills Prov: Benny Pepe 01/08/20 Methocarbamol* (ROBAXIN-500*) 500 Mg Tablet 500 MG ORAL TID PRN for For Pain, #15 TAB 0 Refills Prov: Benny Pepe 01/08/20 Referrals: NON PHYSICIAN (PCP) Patient Instructions: Back Pain, Adult, Lumbosacral Strain Additional Instructions: Take medication as directed, follow-up with your primary care doctor, if worsening symptoms return to the emergency room Benny Pepe Jan 08, 2020 12:55
[2020-01-08] MEDS ORDERED: LIDODERM700 M1 TOPIC (12:56)
[2020-01-08] MEDS ORDERED: ROBAXIN-500MG ORAL (12:56)
[2020-01-08] MEDS ORDERED: IBUPROFEN600 MG ORAL (12:56)
[2020-01-08 13:02] VITALS: BP 137/82
--- NOTE | 2020-01-08 13:03 | NUR ---
ER DISCHARGE NOTE: Patient is cleared to be discharged per ERMD, pt is aox4, on room air, with stable vital signs. pt was given dc and prescription instructions, pt was able to verbalize understanding, pt id bandremoved. pt is able to ambulate with steady gait. pt took all belongings.
== END 2020-01-08 13:00 | disposition home or self-care (01) ==
LOC: EMR 12:21
DX: S39.012A Strain of muscle, fascia and tendon of lower back, initial encounter (principal); Y93.51 Activity, roller skating (inline) and skateboarding; Y92.9 Unspecified place or not applicable; Z88.6 Allergy status to analgesic agent; Z91.011 Allergy to milk products; Z91.018 Allergy to other foods
CPT/HCPCS: 99282

== ENCOUNTER 2020-01-24 12:32 | Emergency (ER) | payer MEDICAID ==
[~2020-01-24] VITALS: Ht 170.2 cm; Wt 85.3 kg
[~2020-01-24 12:32] MED LIST changes: +ROBAXIN-500MG ORAL
[2020-01-24 13:00] VITALS: BP 104/50
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
[2020-01-24] MEDS ORDERED: TYLENOL325 MG ORAL (13:14)
[2020-01-24] MEDS ORDERED: ROBAXIN-750750 MG PO (13:14)
[2020-01-24 13:40] VITALS: BP 104/50
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
== END 2020-01-24 13:40 | disposition home or self-care (01) ==
LOC: EMR 13:20
DX: S33.5XXA Sprain of ligaments of lumbar spine, initial encounter (principal); M54.2 Cervicalgia; M79.645 Pain in left finger(s); V43.52XA Car driver injured in collision with other type car in traffic accident, initial encounter; Y92.410 Unspecified street and highway as the place of occurrence of the external cause; Z88.6 Allergy status to analgesic agent; Z91.018 Allergy to other foods
CPT/HCPCS: 99282

== ENCOUNTER 2021-02-02 17:33 | Emergency (ER) | payer OTHER, MEDICAID ==
[~2021-02-02] VITALS: Ht 170.2 cm; Wt 83.0 kg
[2021-02-02 17:41] VITALS: BP 130/88
[2021-02-02] MEDS ORDERED: Oxymetazoline 0.05% Na Spray 30ml NASAL ONE (17:45)
--- NOTE | 2021-02-02 17:46 | NUR ---
pt arrives to ER with complaints of intermittent nosebleed x 2 weeks. pt states nosebleed this mornin after waking up. pt states being concerned up spitting out blood from nasal drainage. pt denies any trauma to area. pt is currently have experiencing a nosebleed at this time. pt states scant bleeding with nosebleeds occur only lasting for a couple seconds and controlled by holding pressure.
--- NOTE | 2021-02-02 17:47 | Emergency Room Report ---
History of Present Illness General Chief Complaint: To Be Triaged Present Illness HPI 45-year-old female here with intermittent nosebleeds for several days. Patient says that her nosebleeds are mainly worse in the morning. They are maintained with pressure alone. She says that she never feels the blood dripping down the back of her throat. No headache, vision changes, fevers, chills, shortness of breath. Allergies: Coded Allergies: Green Fernandez (Verified Allergy, Unknown, 09/14/15) IBUPROFEN (Verified Allergy, Unknown, 11/17/19) Jackson Fernandez (Verified Allergy, Unknown, 09/14/15) Pork (Verified Allergy, Unknown, 08/01/16) White Fernandez (Verified Allergy, Unknown, 09/14/15) Dairy (Verified Adverse Reaction, Intermediate, vomit, 02/28/13) Review of Systems All Other Systems: negative except mentioned in HPI Physical Exam Sp02 EP Interpretation: reviewed, normal General Appearance: no apparent distress, alert, non-toxic Head: normocephalic, atraumatic Eyes: bilateral eye normal inspection, bilateral eye PERRL ENT: hearing grossly normal, normal pharynx, no angioedema, normal voice Neck: full range of motion, supple/symm/no masses Respiratory: chest non-tender, lungs clear, normal breath sounds, speaking full sentences Cardiovascular #1: regular rate, rhythm, no edema Cardiovascular #2: 2+ carotid (R), 2+ carotid (L), 2+ radial (R), 2+ radial (L), 2+ dorsalis pedis (R), 2+ dorsalis pedis (L) Gastrointestinal: normal bowel sounds, non tender, soft, non-distended, no guarding, no rebound Rectal: deferred Genitourinary: normal inspection, no CVA tenderness Musculoskeletal: back normal, normal range of motion, gait/station normal, non- tender Neurologic: alert, motor strength/tone normal, oriented x3, sensory intact, responsive, speech normal Psychiatric: judgement/insight normal, memory normal, mood/affect normal, no suicidal/homicidal ideation Lymphatic: no adenopathy Medical Decision Making Diagnostic Impression: Primary Impression: Epistaxis ER Course 45-year-old female here with epistaxis. Patient no epistaxis on physical examination. She was given Afrin nasal spray and told to follow-up with her primary care physician. Told to return with any worsening symptoms. She expressed understanding and was discharged. Marlon Solis M.D. Feb 02, 2021 17:46
== END 2021-02-02 18:25 | disposition home or self-care (01) ==
LOC: EMR 17:43
DX: R04.0 Epistaxis (principal); Z88.6 Allergy status to analgesic agent; Z91.011 Allergy to milk products; Z91.018 Allergy to other foods
CPT/HCPCS: 99282